=== PATIENT | female | born 1945 | race Caucasian/White ===

== ENCOUNTER 2018-12-19 16:22 | Emergency (ER) | payer MEDICARE ==
--- OUTSIDE RECORDS SUMMARY | 2018-12-19 16:58 | XMS REPORT | Continuity of Care Document ---
:1945 External Reference #:[id number] Author Name Buddy Roa MD Address [address] [place] [address] Care Team Providers Name Role Phone Jesus Sparks MD Care Team Information Software Integration Developer Unavailable Jesus Sparks MD Primary Care Physician Unavailable Payers Date Identification Numbers Payment Provider Subscriber Policy Number: [id number] Medicare Kari Franz PayID: [id number] [address] [place] [address] Expires: 2018 Policy Number: [id number] Medicare Kari Franz PayID: [id number] [address] [place] [address] Expires: 2013 Policy Number: [id number] Lifetime Benefit Kari Franz Solution PayID: [id number] [address] [address] [place] [address] Effective: 2013 Policy Number: [facility] Kari Franz [id number] PayID: [id number] [address] [place] [address] Advance Directives Description No Information Available Problems Active Problems Provider Date Abnormal results of cardiovascular Malka Lea ANP Onset: 08/18/2012 function studies Chest pain Malka Lea ANP Onset: 08/18/2012 Benign essential hypertension Malka Lea ANP Onset: 08/18/2012 Mixed hyperlipidemia Malka Lea ANP Onset: 08/18/2012 Dyspnea Malka Lea ANP Onset: 04/28/2013 Disorder of skin and/or subcutaneous Jose Alejandro Haley M.D. Onset: 07/05/2013 tissue Arthralgia of the ankle and/or foot Jose Alejandro Haley M.D. Onset: Atrial fibrillation Malka Lea, ANP Onset: 09/22/2014 Coronary arteriosclerosis Malka Lea ANP Onset: 09/22/2014 Angina pectoris Malka Lea, CONRADO Onset: 09/22/2014 Peripheral vascular disease Malka Lea ANP Onset: 09/22/2014 Essential hypertension Buddy Roa MD Onset: 05/08/2015 Trochanteric bursitis Beni Campa M.D. 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 Family History Date Family Member(s) Observation Comments Father due to Aneurysm () Father due to Heart Disease () Mother due to Congestive Heart Failure () Mother due to Diabetes () Mother due to Stroke () Grandfather due to Heart Disease () Grandmother due to Stroke () Social History Type Date Description Comments Sex Unknown Lives With Alone Diet Patient is on a low sugar diet Occupation Retired ADL's/IADL's Independent with all ADL's Tobacco Use Start: Unknown Never Smoked Cigarettes ETOH Use Rarely consumes alcohol Tobacco Use Start: Unknown Patient has never smoked Smoking Status Reviewed: 07/04/18 Patient has never smoked Allergies, Adverse Reactions, Alerts Active Allergies Reaction Severity Comments Date Penicillins 12/24/2011 Sulfa Drugs 12/24/2011 NSAIDs 12/24/2011 Aspirin causes brusing 12/24/2011 Allopurinol 12/24/2011 Flovent 12/24/2011 Zonegran 02/14/2014 Fluticasone Propionate 05/17/2015 NSAIDS (Non-Steroidal Anti-Inflamma 05/17/2015 Sulfa (Sulfonamide Antibiotics) 05/17/2015 Alcohol 05/17/2015 Cinnamon 05/17/2015 Zonisamide 05/17/2015 Doxycycline 06/30/2016 Nitrofurantoin Hives, Itching 11/28/2018 Medications Active Medications SIG Qnty Indications Ordering Date Provider Digoxin take 1 tablet by 90tabs Agustin Rodriguez 01/12/2018 125mcg Tablets mouth once daily Meg Hobbs, [facility] Preservision Areds 2 1 by mouth twice a Unknown day Areds 2 Capsules Lyrica 1 cap by mouth Unknown 50mg Capsules twice a day as needed Oxygen with Cpap Unknown Miralax 1 tablespoon with Unknown [id number] Powder large glass of water every day Krill Oil 1 by mouth every Unknown 350mg day Capsules Melatonin 1 tab by mouth Unknown 5mg Capsules every day at bedtime Benadryl Allergy 1 tab by mouth Unknown 25mg twice a day for Tablets rash Potassium Chloride 1 by mouth every 90tabs Agustin Rodriguez Mirna ER day Meg Hobbs, [facility] 10Meq Tablets ER Torsemide Take 1 Tablet By 90tabs Buddy Roa MD 20mg Tablets Mouth Twice Daily For 3 Days Then One Tablet Daily Proair HFA take 2 puffs every Unknown 108(90Base) 6 hours as needed mcg/Act Aerosol for shortness of breath. Aspirin Adult Low 1 by mouth every Unknown Dose day 81mg Tablets DR Amlodipine Besylate 1 by mouth every Unknown 5mg day Tablets Venlafaxine HCL ER 1 in the morning Unknown 75mg Tablets Gabapentin 1 by mouth in Am Unknown 300mg and 2-3 PM Capsules Pravastatin Sodium 1 1/2 by mouth Unknown 40mg every evening Tablets Novolog Flexpen as instructed Unknown 100Unit/ML Solution Pen-Inject Levemir 66 units am, 64 Unknown 100Unit/ML units PM Solution Pen-Inject Lisinopril 1/2 po qd 90tabs Unknown 40mg Tablets History Medications Torsemide take 1 tablet by 90tashanell Rodriguez 01/12/2018 - 20mg Tablets mouth twice daily Agustin Hobbs M.D., Unknown for 3 days then FACC one tablet daily Adult Diapers 3 months supply Buddy Roa MD 06/18/2017 - Unknown Aspirin Ec 1 by mouth every 90tabs I48.1 Buddy Roa MD 06/18/2017 - 81mg Tablets DR day Unknown Eliquis 1 tab by mouth 60tabs I48.1 Buddy Roa MD 03/03/2017 - 2.5mg Tablets twice daily 06/18/2017 Amiodarone HCL 1 by mouth every 90tabs Buddy Roa MD 11/12/2016 - 200mg Tablets day Unknown Bystolic 1 by mouth every 90tabs Buddy Roa MD 11/11/2016 - 5mg Tablets day Unknown Potassium Chloride ER 2 by mouth every 180tabs Jennifer, 11/11/2016 - 10Meq day Agustin Hobbs M.D., Unknown Tablets ER FACC Torsemide 1 by mouth daily 90tabs Buddy Roa MD 09/22/2016 - 20mg Tablets 01/12/2018 Digoxin 1 by mouth every 90tabs Buddy Roa MD 09/22/2016 - 125mcg Tablets day 11/22/2017 Amiodarone HCL 1 by mouth every 90tabs Jennifer, 07/13/2016 - 200mg Tablets day Agustin Hobbs M.D., 11/11/2016 FACC Eliquis 1 by mouth twice 60tabs I48.9 Buddy Roa MD 06/30/2016 - 5mg Tablets a day 1 11/11/2016 Lyrica 1 by mouth each 60caps Boufal, 11/07/2015 - 50mg Capsules morning Jane, Unknown Metolazone 1 tab by mouth 30tabs R60.0 Buddy Roa MD 05/08/2015 - 2.5mg Tablets take 30 min prior Unknown to in the morning torsemide dose Torsemide 1 by mouth twice Unknown 03/15/2015 - 20mg Tablets daily 03/15/2015 Magnesium Oxide 1 by mouth every 30tabs Buddy Roa MD 03/14/2015 - 400(240Mg) mg day 09/09/2015 Tablets Torsemide 2 by mouth twice 60tabs 782.3 Buddy Roa MD 02/28/2015 - 20mg Tablets daily Unknown Potassium Chloride Mirna 2 by mouth every 60tabs Buddy Roa MD 2014 - ER day Unknown 20Meq Tablets ER Amlodipine Besylate 1 by mouth every 90tabs I10 Buddy Roa MD 2014 - 5mg Tablets day 09/09/2015 Tramadol HCL 2 tablets at 40tabs Brad Johnson 04/23/2014 - 50mg Tablets bedtime as needed MD Tad, FACS Unknown for pain Imdur 1 po qd 90tabs 786.5 Barry Walden, 04/27/2013 - 30mg Tablets ER 24HR 0 , PhD Unknown Spironolactone Take One Tablet 30tabs 401.1 Barry Walden, 09/23/2012 - 25mg Tablets By Mouth Every , PhD 04/12/2014 Day Nitroglycerin Unknown - 0.1mg/HR Patches Unknown 24HR Nystatin apply to affected Unknown - [id number]/GM Cream areas twice a day Unknown Berkey 3 1 by mouth every Unknown - 1000mg Capsules day Unknown Xarelto 1 by mouth every Unknown - 20mg Tablets day Unknown Spironolactone 1 by mouth every Unknown - 25mg Tablets day Unknown Proair HFA 1-2 inhalations Unknown - 108(90Base) mcg/Act every 4 hours as 09/09/2015 Aerosol needed Acetaminophen-Codeine #3 1 by mouth every Unknown - 6 hours as needed 09/09/2015 300-30mg Tablets Torsemide 2 by mouth every 180tabs Jennifer - 20mg Tablets day Agustin Hobbs M.D., Unknown FACC Torsemide 1 by mouth twice 60tabs Buddy Roa MD - 20mg Tablets daily Unknown Lasix 1 by mouth every Unknown - 40mg Tablets day Unknown Aspir-81 1 by mouth every I48.9 Unknown - 81mg Tablets DR day 1 06/30/2016 Ditropan XL 1 by mouth every 30tabs Unknown - 5mg Tablets ER 24HR day Unknown Amitriptyline HCL at bedtime 30tabs Unknown - 75mg Tablets Unknown Patanol 1 drop both eyes Unknown - 0.1% Solution twice a day as Unknown needed Ventolin HFA as needed Unknown - 108(90Base) 01/12/2018 mcg/Act Aerosol Nitrostat 1 tab sl every 5 25tabs Unknown - 0.4mg Tablets Sub min x3 chest pain Unknown Furosemide 1 tab by mouth 90tabs Buddy Roa MD - 40mg Tablets twice daily 02/28/2015 Isosorbide Dinitrate 1 by mouth twice 180tabs R07.9 Buddy Roa MD - 30mg a day 11/07/2015 Tablets Vitamin B Complex 1 by mouth every Unknown - Tablets day Unknown Isosorbide Mononitrate ER 1 by mouth every Unknown - 30mg morning Unknown Tablets ER 24HR Fish Oil 1 by mouth daily Unknown - 600mg Capsules Unknown Isosorbide Dinitrate take one twice Unknown - 30mg daily 01/12/2018 Tablets Aspir-81 1 by mouth every Unknown - 81mg Tablets DR day Unknown Lyrica 2 by mouth in am Unknown - 50mg Capsules three po at hs Unknown Lyrica 1 tab by mouth Unknown - 150mg Capsules twice a day Unknown Amlodipine Besylate Take One Tablet 90tabs Buddy Roa MD - 5mg Tablets By Mouth Once Unknown Daily Oxybutynin Chloride ER 1 by mouth twice Unknown - 5mg daily 01/12/2018 Tablets ER 24HR Beta Carotene every day Unknown - [id number] Unknown Capsules Magnesium 1 by mouth every Unknown - 400mg Tablets day 11/07/2015 Lyrica Take 1 capsule by Unknown - 100mg Capsules mouth AT Bedtime Unknown for diabetes with nerve disease Multivitamins 1 by mouth every Unknown - Capsules day Unknown Melatonin 1 by mouth every Unknown - 5mg Capsules at bedtime as Unknown needed Klor-Con M20 2 by mouth every 180tabs Jennifer, - 20Meq Tablets ER day Agustin Hobbs M.D., Unknown FACC Tylenol With Codeine #3 1 by mouth q6hr Unknown - as needed severe Unknown 300-30mg Tablets pain, us if ibuprofen not effective Sominex Unknown - 25mg Tablets Unknown Fenofibrate 1 by mouth every Unknown - 48mg Tablets day Unknown Glyburide 2 po bid Unknown - 5mg Tablets Unknown Hydrochlorothiazide 1 po qd 401.1 Unknown - 25mg 09/23/2012 Tablets Lisinopril 1 po qd 90tabs Unknown - 40mg Tablets Unknown Acetaminophen/Codeine #2 1-3 Times A Day Unknown - prn 09/09/2015 300-15mg Tablets Pravastatin Sodium 1 po qd 30tabs Unknown - 40mg Tablets 09/09/2015 Amitriptyline HCL hs 30tabs Unknown - 75mg Tablets Unknown Metformin HCL 1 po tid Unknown - 850mg Tablets Unknown Januvia 1 po qd 30tabs Unknown - 100mg Tablets Unknown Tricor 1 po qd Unknown - 48mg Tablets Unknown Venlafaxine HCL 1 po qd Unknown - 75mg Tablets Unknown Proair HFA 2 puffs q4h prn Unknown - 108(90Base) mcg/ac 12/13/2013 Aerosol Lantus sliding scale Unknown - 100U,ML Solution 12/13/2013 Multiple Vitamins qd Unknown - Tablets 09/09/2015 Fish Oil po qd 90caps Unknown - 1000mg Capsules Unknown Aspir-81 1 po qd 60tabs Unknown - 81mg Tablets DR Unknown Benadryl Allergy Unknown - 25mg Capsules Unknown Calcium 500 + D PO qd Unknown - [id number] Unknown Tablets Vitamin B Complex 1 po qd Unknown - Tablets Unknown Aspirin 1 by mouth every Unknown - 325mg Tablets day Unknown Fenofibrate 1 po qd Unknown - 48mg Tablets Unknown Spironolactone 1 po qd 401.1 Unknown - 50mg Tablets Unknown Gabapentin 2 po Tid Unknown - 100mg Capsules Unknown Glucosamine 1 po qd Unknown - 1500mg Tablets Unknown Vision Formula/Lutein 1 po bid Unknown - Tablets Unknown Fish Oil 1 po qd Unknown - Capsules 09/09/2015 Melatonin 1 po qhs Unknown - 3mg Capsules 09/09/2015 Benadryl po bid Unknown - 25mg Capsules 09/09/2015 Carvedilol 1 po bid Unknown - 3.125mg Tablets 04/12/2014 Aspirin 1 po qd 90tabs Unknown - 81mg Tablets Unknown Effexor XR 1 po qd Unknown - 75mg Caps ER 24HR 09/09/2015 Humalog sliding scale Unknown - 100Unit/ML Solution 12/13/2013 Nystatin apply to affected 15gm Unknown - 342369Pieb/GM Cream area bid 12/13/2013 Gabapentin 1 po bid Unknown - 300mg Capsules 09/09/2015 Prochlorperazine Maleate po prn nausea Unknown - 10mg Unknown Tablets Amlodipine Besylate 1 po qd 90tabs 401.1 Unknown - 10mg 10/08/2014 Tablets Lyrica 2 po qam, 3 po Unknown - 25mg Capsules qpm 09/09/2015 Patanol 1 drop ou bid prn Unknown - 0.1% Solution 12/13/2013 Medications Administered in Office Medication SIG Qnty Indications Ordering Provider Date Methylprednisolone acetate Brad Johnson, 12/13/2013 (Depomedrol) 80mg injection , CONNIE Injection Immunizations Description No Information Available Vital Signs Date Vital Result Comment 11/28/2018 3:43pm BP Systolic Sitting Left Arm 130 mmHg BP Diastolic Sitting Left Arm 86 mmHg Heart Rate 95 /min Respiratory Rate 18 /min Height 69 inches 5'9" Weight 292.00 lb BMI (Body Mass Index) 43.1 kg/m2 BSA (Body Surface Area) 2.43 m2 Carson body weight in kilograms 66 kg O2 % BldC Oximetry 91 % Ora 07/21/2018 1:00pm BP Systolic Sitting Left Arm 138 mmHg BP Diastolic Sitting Left Arm 72 mmHg Heart Rate 80 /min Respiratory Rate 18 /min Height 69 inches 5'9" Weight 293.00 lb BMI (Body Mass Index) 43.3 kg/m2 BSA (Body Surface Area) 2.43 m2 Carson body weight in kilograms 66 kg O2 % BldC Oximetry 94 % 07/04/2018 10:44am BP Systolic Sitting Left Arm 116 mmHg BP Diastolic Sitting Left Arm 72 mmHg Heart Rate 68 /min Respiratory Rate 18 /min Height 69 inches 5'9" Weight 285.00 lb BMI (Body Mass Index) 42.1 kg/m2 BSA (Body Surface Area) 2.40 m2 Carson body weight in kilograms 66 kg O2 % BldC Oximetry 97 % 03/16/2018 12:05pm BP Systolic Sitting Left Arm 132 mmHg BP Diastolic Sitting Left Arm 84 mmHg Heart Rate 67 /min Respiratory Rate 20 /min Weight 288.00 lb O2 % BldC Oximetry 97 % room air 01/12/2018 1:19pm BP Systolic Sitting Right Arm 108 mmHg BP Diastolic Sitting Right Arm 68 mmHg Heart Rate 92 /min Respiratory Rate 20 /min Weight 288.00 lb O2 % BldC Oximetry 93 % Ra 06/18/2017 2:35pm BP Systolic Sitting Left Arm 134 mmHg BP Diastolic Sitting Left Arm 78 mmHg Heart Rate 92 /min Respiratory Rate 16 /min Height 68.5 inches 5'8.50" Weight 277.00 lb BMI (Body Mass Index) 41.5 kg/m2 BSA (Body Surface Area) 2.36 m2 Carson body weight in kilograms 65 kg 05/03/2017 11:35am BP Systolic Sitting Left Arm 150 mmHg BP Diastolic Sitting Left Arm 82 mmHg Heart Rate 82 /min Respiratory Rate 18 /min Height 68.5 inches 5'8.50" Weight 281.00 lb BMI (Body Mass Index) 42.1 kg/m2 BSA (Body Surface Area) 2.37 m2 Carson body weight in kilograms 65 kg 03/03/2017 3:11pm BP Systolic Sitting Right Arm 121 mmHg BP Diastolic Sitting Right Arm 74 mmHg Heart Rate 85 /min Respiratory Rate 18 /min Height 68.5 inches 5'8.50" Weight 283.00 lb BMI (Body Mass Index) 42.4 kg/m2 BSA (Body Surface Area) 2.38 m2 Carson body weight in kilograms 65 kg 11/11/2016 2:22pm BP Systolic Sitting Left Arm 219 mmHg BP Diastolic Sitting Left Arm 97 mmHg Heart Rate 79 /min Respiratory Rate 16 /min Height 68.5 inches 5'8.50" Weight 314.00 lb BMI (Body Mass Index) 47.0 kg/m2 BSA (Body Surface Area) 2.49 m2 09/22/2016 1:56pm BP Systolic Sitting Right Arm 130 mmHg BP Diastolic Sitting Right Arm 84 mmHg Heart Rate 90 /min Respiratory Rate 18 /min Height 68.5 inches 5'8.50" Weight 319.00 lb BMI (Body Mass Index) 47.8 kg/m2 BSA (Body Surface Area) 2.51 m2 06/30/2016 2:18pm BP Systolic Sitting Right Arm 99 mmHg BP Diastolic Sitting Right Arm 58 mmHg Heart Rate 103 /min Respiratory Rate 18 /min Height 68.5 inches 5'8.50" Weight 315.00 lb BMI (Body Mass Index) 47.2 kg/m2 BSA (Body Surface Area) 2.49 m2 12/25/2015 2:49pm BP Systolic Sitting Left Arm 132 mmHg BP Diastolic Sitting Left Arm 78 mmHg Heart Rate 72 /min Respiratory Rate 16 /min Height 68.5 inches 5'8.50" Weight 308.00 lb BMI (Body Mass Index) 46.1 kg/m2 BSA (Body Surface Area) 2.47 m2 12/05/2015 1:12pm BP Systolic Sitting Left Arm 110 mmHg BP Diastolic Sitting Left Arm 64 mmHg Heart Rate 70 /min Respiratory Rate 16 /min Height 68.5 inches 5'8.50" Weight 313.00 lb BMI (Body Mass Index) 46.9 kg/m2 BSA (Body Surface Area) 2.49 m2 11/07/2015 10:07am BP Systolic 133 mmHg BP Diastolic 76 mmHg Body Temperature 97.3 F Heart Rate 66 /min Respiratory Rate 24 /min Height 68.5 inches 5'8.50" Weight 312.00 lb BMI (Body Mass Index) 46.7 kg/m2 BSA (Body Surface Area) 2.48 m2 O2 % BldC Oximetry 96 % 09/27/2015 1:11pm BP Systolic Sitting Right Arm 118 mmHg BP Diastolic Sitting Right Arm 60 mmHg Heart Rate 68 /min Respiratory Rate 16 /min Height 68.0 inches 5'8" Weight 303.00 lb BMI (Body Mass Index) 46.1 kg/m2 BSA (Body Surface Area) 2.44 m2 09/09/2015 2:42pm BP Systolic 124 mmHg BP Diastolic 82 mmHg Heart Rate 78 /min Height 68.0 inches 5'8" Weight 302.00 lb BMI (Body Mass Index) 45.9 kg/m2 BSA (Body Surface Area) 2.43 m2 08/13/2015 2:41pm BP Systolic Sitting Left Arm 116 mmHg BP Diastolic Sitting Left Arm 60 mmHg Heart Rate 64 /min Respiratory Rate 16 /min Height 68 inches 5'8" Weight 311.00 lb BMI (Body Mass Index) 47.3 kg/m2 BSA (Body Surface Area) 2.47 m2 06/26/2015 2:17pm BP Systolic Sitting Right Arm 114 mmHg BP Diastolic Sitting Right Arm 60 mmHg Heart Rate 68 /min Respiratory Rate 16 /min Height 68 inches 5'8" Weight 308.00 lb BMI (Body Mass Index) 46.8 kg/m2 BSA (Body Surface Area) 2.46 m2 06/12/2015 2:00pm BP Systolic Sitting Right Arm 128 mmHg BP Diastolic Sitting Right Arm 60 mmHg Heart Rate 68 /min Respiratory Rate 16 /min Height 68 inches 5'8" Weight 314.00 lb BMI (Body Mass Index) 47.7 kg/m2 BSA (Body Surface Area) 2.48 m2 05/08/2015 2:42pm BP Systolic Sitting Right Arm 128 mmHg BP Diastolic Sitting Right Arm 68 mmHg Heart Rate 60 /min Respiratory Rate 16 /min Height 68 inches 5'8" Weight 311.00 lb BMI (Body Mass Index) 47.3 kg/m2 BSA (Body Surface Area) 2.47 m2 04/03/2015 1:37pm BP Systolic Sitting Left Arm 136 mmHg BP Diastolic Sitting Left Arm 78 mmHg Heart Rate 54 /min Respiratory Rate 16 /min Height 68 inches 5'8" Weight 312.00 lb BMI (Body Mass Index) 47.4 kg/m2 BSA (Body Surface Area) 2.47 m2 03/15/2015 2:05pm BP Systolic Sitting Left Arm 128 mmHg BP Diastolic Sitting Left Arm 72 mmHg Heart Rate 60 /min Respiratory Rate 16 /min Height 68 inches 5'8" Weight 306.00 lb BMI (Body Mass Index) 46.5 kg/m2 BSA (Body Surface Area) 2.45 m2 02/28/2015 2:38pm BP Systolic Sitting Left Arm 110 mmHg BP Diastolic Sitting Left Arm 58 mmHg Heart Rate 60 /min Respiratory Rate 16 /min Height 68 inches 5'8" Weight 312.81 lb BMI (Body Mass Index) 47.6 kg/m2 BSA (Body Surface Area) 2.47 m2 02/19/2015 2:13pm BP Systolic Sitting Right Arm 120 mmHg BP Diastolic Sitting Right Arm 64 mmHg Heart Rate 50 /min Respiratory Rate 16 /min Height 68 inches 5'8" Weight 312.00 lb BMI (Body Mass Index) 47.4 kg/m2 BSA (Body Surface Area) 2.47 m2 12/17/2014 1:11pm Heart Rate 68 /min Respiratory Rate 16 /min Height 68 inches 5'8" Weight 312.00 lb BMI (Body Mass Index) 47.4 kg/m2 BSA (Body Surface Area) 2.47 m2 10/08/2014 11:23am Heart Rate 64 /min Respiratory Rate 16 /min Height 68 inches 5'8" Weight 313.00 lb BMI (Body Mass Index) 47.6 kg/m2 BSA (Body Surface Area) 2.47 m2 09/21/2014 11:08am BP Systolic Sitting Right Arm 134 mmHg BP Diastolic Sitting Right Arm 74 mmHg Heart Rate 94 /min Respiratory Rate 24 /min Height 68 inches 5'8" Weight 311.00 lb BMI (Body Mass Index) 47.3 kg/m2 BSA (Body Surface Area) 2.47 m2 04/25/2014 3:49pm BP Systolic Sitting Left Arm 120 mmHg BP Diastolic Sitting Left Arm 62 mmHg Heart Rate 52 /min Respiratory Rate 16 /min Height 68 inches 5'8" Weight 309.00 lb BMI (Body Mass Index) 47.0 kg/m2 BSA (Body Surface Area) 2.46 m2 04/12/2014 9:40am BP Systolic Sitting Left Arm 94 mmHg BP Diastolic Sitting Left Arm 40 mmHg Heart Rate 54 /min Respiratory Rate 20 /min Height 68 inches 5'8" Weight 307.00 lb BMI (Body Mass Index) 46.7 kg/m2 BSA (Body Surface Area) 2.45 m2 O2 % BldC Oximetry 97 % 02/13/2014 11:32am BP Systolic Sitting Right Arm 130 mmHg BP Diastolic Sitting Right Arm 84 mmHg Heart Rate 59 /min Respiratory Rate 16 /min Height 68 inches 5'8" Weight 300.00 lb BMI (Body Mass Index) 45.6 kg/m2 BSA (Body Surface Area) 2.43 m2 12/13/2013 2:36pm BP Systolic Sitting Right Arm 132 mmHg BP Diastolic Sitting Right Arm 84 mmHg Height 68 inches 5'8" Weight 296.00 lb BMI (Body Mass Index) 45.0 kg/m2 BSA (Body Surface Area) 2.41 m2 09/01/2013 2:14pm BP Systolic Sitting Right Arm 132 mmHg BP Diastolic Sitting Right Arm 68 mmHg Heart Rate 56 /min Respiratory Rate 16 /min Height 69 inches 5'9" Weight 291.00 lb BMI (Body Mass Index) 43.0 kg/m2 BSA (Body Surface Area) 2.42 m2 07/05/2013 12:00pm BP Systolic Sitting Left Arm 139 mmHg BP Diastolic Sitting Left Arm 66 mmHg Heart Rate 51 /min Height 69 inches 5'9" Weight 285.00 lb BMI (Body Mass Index) 42.1 kg/m2 BSA (Body Surface Area) 2.40 m2 06/15/2013 10:44am BP Systolic Sitting Left Arm 122 mmHg BP Diastolic Sitting Left Arm 64 mmHg Heart Rate 65 /min Respiratory Rate 16 /min Height 69 inches 5'9" Weight 290.00 lb BMI (Body Mass Index) 42.8 kg/m2 BSA (Body Surface Area) 2.42 m2 O2 % BldC Oximetry 95 % 04/27/2013 2:15pm BP Systolic Sitting Right Arm 154 mmHg BP Diastolic Sitting Right Arm 84 mmHg Heart Rate 60 /min Respiratory Rate 16 /min Height 69 inches 5'9" Weight 289.00 lb BMI (Body Mass Index) 42.7 kg/m2 BSA (Body Surface Area) 2.42 m2 10/20/2012 11:13am BP Systolic Sitting Left Arm 160 mmHg BP Diastolic Sitting Left Arm 86 mmHg Heart Rate 68 /min Respiratory Rate 20 /min Height 69 inches 5'9" Weight 298.00 lb BMI (Body Mass Index) 44.0 kg/m2 BSA (Body Surface Area) 2.45 m2 09/23/2012 2:25pm BP Systolic Sitting Left Arm 112 mmHg BP Diastolic Sitting Left Arm 60 mmHg Heart Rate 68 /min Respiratory Rate 22 /min w/ minimal exertion Height 69 inches Weight 292.00 lb BMI (Body Mass Index) 43.1 kg/m2 08/18/2012 9:23am BP Systolic Sitting Right Arm 118 mmHg Forearm BP Diastolic Sitting Right Arm 62 mmHg Forearm Heart Rate 72 /min Respiratory Rate 16 /min Height 69 inches 5'9" Stated- Can Not Stand Weight 298.00 lb Stated- Can Not Stand BMI (Body Mass Index) 44.0 kg/m2 Results Test Date Facility Test Result H/L Range Note Basic (BMP) 11/16/2018 N2N/CCD Import Sodium 139 mmol/L 135-146 1, 2 Potassium 3.9 mmol/L 3.5-5.2 Chloride# 103 mmol/L 97-110 3 Carbon Dioxide 23 mmol/L Low 24-34 Glucose 285 mg/dL High 70-105 BUN 30 mg/dL High 6-26 Creatinine 1.1 mg/dL 0.5-1.4 Calcium 9.8 mg/dL 8.5-10.2 Non Yue Egfr 47 1 Low 4 Yue Egfr 57 1 Low 5 Anion Gap 13 mmol/L 5-15 6 CBC with Auto Diff-fcmg 11/16/2018 N2N/CCD Import WBC 6.8 K/uL 4.1-11 RBC 4.43 M/uL 4-5.4 Hemoglobin 14.0 gm/dL 12-16 Hematocrit 41.8 % 36-47 MCV 94.4 fL 80-97 MCH 31.6 pg 27-32 MCHC 33.5 g/dL 32-36 RDW 14.2 % 11.5-14.5 PLT Count 183 K/ul 140-400 MPV 9.0 FL 7.1-10.7 Neutrophil 66.7 % 35-75 Lymphocyte 20.0 % 16-52 Monocyte 10.8 % High 2-10 Eosinophil 1.9 % 0-5 Basophil 0.6 % 0-4 Abs Neutrophils 4.5 K/uL 2.1-8 Abs Lymphocytes 1.4 K/uL 0.8-5.5 Abs Monocytes 0.7 K/uL 0.1-1 Abs Eosinophils 0.1 K/uL 0-0.5 Abs Basophils 0.0 K/uL 0-0.3 Lab Results 11/16/2018 N2N/CCD Import Hemoglobin A1c 10.6 % High 4.1-5.9 Estimated Average Glucose Calc 258 mg/dL High 71-140 TSH 3.79 uIU/mL 0.35-4.94 Lab Results 11/16/2018 N2N/CCD Import TSH 3.79 uIU/mL 0.35-4.94 Hepatic Panel (LFT) 11/16/2018 N2N/CCD Import Total Protein 6.2 g/dL 6- 8 Albumin 3.7 g/dL 3.6-4.9 Total Bilirubin 0.7 mg/dL 0.1-1.3 Direct Bilirubin 0.1 mg/dL 0-0.4 Alkaline Phosphatase 171 U/L High 24-140 Alt 28 U/L 3-42 Ast 33 U/L 8-42 Lab Results 11/16/2018 N2N/CCD Import Cholesterol 188 mg/dL 50-199 Triglycerides 314 mg/dL High 30-200 HDL 40 mg/dL 35-85 7 Chol/ HDL Ratio 4.7 ratio 3.7-5.6 VLDL 63 mg/dL High 2-29 LDL (Calc) 86 mg/dL 20-99 8 Ferritin 173.8 ng/mL 11-306.8 Lab Results 11/16/2018 N2N/CCD Import Ferritin 173.8 ng/mL 11-306.8 Hepatic Panel (LFT) 05/17/2018 N2N/CCD Import Albumin 3.8 g/dL 3.6-4.9 9 Alkaline Phosphatase 130 U/L 24-140 Alt 20 U/L 3-42 Ast 24 U/L 8-42 Direct Bilirubin 0.1 mg/dL 0-0.4 Total Bilirubin 0.7 mg/dL 0.1-1.3 Total Protein 6.3 g/dL 6-8 Laboratory test 05/17/2018 N2N/CCD Import Chol/ HDL Ratio 4.1 ratio 3.7- 5.6 finding Cholesterol 163 mg/dL 50-199 Estimated Average Glucose Calc 229 mg/dL High 71-140 Ferritin 170.6 ng/mL 11-306.8 HDL 39 mg/dL 35-85 10 Hemoglobin A1c 9.6 % High 4.1-5.9 LDL (Calc) 81 mg/dL 20-99 11 Triglycerides 214 mg/dL High 30-200 VLDL 43 mg/dL High 2-29 Basic (BMP) 05/17/2018 N2N/CCD Import Yue Egfr >60 12 Anion Gap 11 mmol/L 5-15 13 BUN 15 mg/dL 6-26 Calcium 9.2 mg/dL 8.5-10.2 Carbon Dioxide 26 mmol/L 24-34 Chloride# 103 mmol/L 97-110 14 Creatinine 0.8 mg/dL 0.5-1.4 Glucose 217 mg/dL High 70-105 Non Yue Egfr >60 15 Potassium 4.0 mmol/L 3.5-5.2 Sodium 140 mmol/L 135-146 16 CBC with Auto Diff-fcmg 05/17/2018 N2N/CCD Import Abs Basophils 0.0 K/uL 0-0.3 Abs Eosinophils 0.1 K/uL 0-0.5 Abs Lymphocytes 1.1 K/uL 0.8-5.5 Abs Monocytes 0.5 K/uL 0.1-1 Abs Neutrophils 4.1 K/uL 2.1-8 Basophil 0.6 % 0-4 Eosinophil 1.0 % 0-5 Hematocrit 40.0 % 36-47 Hemoglobin 13.6 gm/dL 12-16 Lymphocyte 19.2 % 16-52 MCH 31.9 pg 27-32 MCHC 33.9 g/dL 32-36 MCV 94.0 fL 80-97 MPV 8.3 FL 7.1-10.7 Monocyte 8.9 % 2-10 Neutrophil 70.3 % 35-75 PLT Count 217 K/ul 140-400 RBC 4.25 M/uL 4-5.4 RDW 14.5 % 11.5-14.5 WBC 5.8 K/uL 4.1-11 Laboratory test finding 06/14/2017 N2N/CCD Import Alt 13 U/L 3-42 17 Ast 19 U/L 8-42 18 Chol/ HDL Ratio 5.3 ratio 3.7-5.6 19 Cholesterol 209 mg/dL High 50-199 HDL 39 mg/dL 35-85 LDL (Calc) 105 mg/dL High 20-99 Magnesium 1.9 mg/dL 1.5-2.7 Triglycerides 323 mg/dL High 30-200 VLDL 65 mg/dL High 2-29 Basic (BMP) 06/14/2017 N2N/CCD Import Yue Egfr 60 1 Low >60 Anion Gap 8 mmol/L 7-16 BUN 20 mg/dL 6-26 20 Calcium 9.7 mg/dL 8.5-10.2 Carbon Dioxide 31 mmol/L 24-34 Chloride# 104 mmol/L 97-110 Creatinine 1.1 mg/dL 0.5-1.4 Glucose 89 mg/dL 70-105 21 Non Yue Egfr 50 1 Low >60 Potassium 4.1 mmol/L 3.5-5.2 22 Sodium 143 mmol/L 135-146 CBC With Auto Diff 06/14/2017 N2N/CCD Import Abs Basophils 0.1 K/uL 0.0- 0.3 Abs Eosinophils 0.1 K/uL 0.0-0.5 Abs Lymphocytes 1.8 K/uL 0.8-5.5 Abs Monocytes 0.7 K/uL 0.1-1.0 Abs Neutrophils 4.1 K/uL 2.1-8.0 Basophil 1.0 % 0.0-4.0 Eosinophil 1.1 % 0.0-5.0 Hematocrit 40.9 % 36.0-47.0 Hemoglobin 13.8 gm/dL 12.0-16.0 Lymphocyte 26.2 % 16.0-52.0 MCH 31.2 pg 27.0-32.0 MCHC 33.7 g/dL 32.0-36.0 MCV 92.6 fL 80.0-97.0 MPV 8.4 FL 7.1-10.7 Monocyte 10.9 % High 2.0-10.0 Neutrophil 60.8 % 35.0-75.0 PLT Count 218 K/ul 140-400 RBC 4.42 M/uL 4.00-5.40 RDW 14.9 % High 11.5-14.5 WBC 6.7 K/uL 4.1-11.0 Hemoglobin A1c 06/14/2017 N2N/CCD Import Estimated Average 220 1 High 71- 140 Glucose Calc Hemoglobin A1c 9.3 % High 4.1-5.9 Poct Glucose Meter 04/24/2017 N2N/CCD Import Glucose,Meter 266 mg/dL High 65 - 100 Basic Metabolic 04/24/2017 N2N/CCD Import Anion Gap 5 mEq/L 4 - 16 Panel BUN 14 mg/dL 8 - 20 BUN/Creat 12.7 1 12.0 - 20.0 Calcium 8.6 mg/dL 8.5 - 10.4 Chloride 109 mEq/L High 98 - 108 Co2 28 mEq/L 20 - 31 Creatinine 1.1 mg/dL High 0.5 - 0.9 Glucose 218 mg/dL High 65 - 100 Potassium 4.5 mEq/L 3.5 - 5.1 Sodium 142 mEq/L 135 - 145 CBC 04/24/2017 N2N/CCD Import HCT 35 % 35 - 47 HGB 11.6 g/dL Low 12.0 - 16.0 MCH 30.8 pg 26.0 - 34.0 MCHC 33.3 g/dL 31.0 - 37.5 MCV 92 fL 80 - 100 Platelet Count 149 103/uL Low 150 - 450 RBC 3.77 106/uL Low 3.80 - 5.20 RDW 13.8 % 0.0 - 15.2 WBC 5.6 103/uL 4.0 - 11.0 eGFR Black 04/24/2017 N2N/CCD Import Egfr Black 59 mL/min Abnormal eGFR 04/24/2017 N2N/CCD Import Egfr 49 mL/min Abnormal Poct Activated 04/23/2017 N2N/CCD Import Poct Act 229 seconds 200 - Clotting Time Cardiac Cath 300 Lab PT/Inr 04/23/2017 N2N/CCD Import Inr 1 0.9 - 1.2 Protime 10.8 sec 10.2 - 12.9 Laboratory test finding 02/10/2017 N2N/CCD Import Alt 14 U/L 3-42 23 Ast 15 U/L 8-42 24 Chol/ HDL Ratio 5.0 ratio 3.7-5.6 25 Cholesterol 181 mg/dL 50-199 Ferritin 87.6 ng/mL 11.0-306.0 HDL 36 mg/dL 35-85 LDL (Calc) 94 mg/dL 20-99 TSH 1.11 uIU/mL 0.35-4.94 Triglycerides 254 mg/dL High 30-200 VLDL 51 mg/dL High 2-29 Basic (BMP) 02/10/2017 N2N/CCD Import Anion Gap 14 mmol/L 7-16 BUN 17 mg/dL 6-26 Calcium 9.2 mg/dL 8.5-10.2 Carbon Dioxide 26 mmol/L 24-34 Chloride# 104 mmol/L 97-110 Creatinine 1.1 mg/dL 0.5-1.4 Glucose 67 mg/dL Low 70-105 26 Non Yue Egfr 51 1 Low >60 Potassium 3.6 mmol/L 3.5-5.2 27 Sodium 140 mmol/L 135-146 CBC With Auto Diff 02/10/2017 N2N/CCD Import Abs Basophils 0.0 K/uL 0.0- 0.3 Abs Eosinophils 0.1 K/uL 0.0-0.5 Abs Lymphocytes 2.1 K/uL 0.8-5.5 Abs Monocytes 0.6 K/uL 0.1-1.0 Abs Neutrophils 4.0 K/uL 2.1-8.0 Basophil 0.4 % 0.0-4.0 Eosinophil 1.6 % 0.0-5.0 Hematocrit 41.7 % 36.0-47.0 Hemoglobin 13.9 gm/dL 12.0-16.0 Lymphocyte 30.3 % 16.0-52.0 MCH 31.5 pg 27.0-32.0 MCHC 33.4 g/dL 32.0-36.0 MCV 94.2 fL 80.0-97.0 Monocyte 8.6 % 2.0-10.0 Neutrophil 59.1 % 35.0-75.0 PLT Count 194 K/ul 140-400 RBC 4.43 M/uL 4.00-5.40 RDW 13.4 % 11.5-14.5 WBC 6.8 K/uL 4.1-11.0 Hemoglobin A1c 02/10/2017 N2N/CCD Import Estimated Average 235 1 High 71- 140 Glucose Calc Hemoglobin A1c 9.8 % High 4.1-5.9 Iron Panel 02/10/2017 N2N/CCD Import % Iron Saturation 11.7 % Low 13.0- 45.0 Iron, Total 48 g/dL Low 50-170 Tibc (calc) 410 g/dL 261-478 Transferrin 293.0 mg/dL 203.0-362.0 CBC 11/20/2016 [facility] White Blood Count 4.3 K/uL N 3.1-10.7 28 [address] [place], [place] [id number] [phone] Red Blood Count 4.33 M/uL N 3.90-5.40 Hemoglobin 13.8 gm/dL N 11.6-15.8 Hematocrit 41.4 % N 36.0-46.1 Mean Cell Volume 95.6 fl N 80.9-99.0 Mean Corpuscular HGB 31.9 pg N 25.9-32.7 Mean Corpuscular HGB Conc 33.3 g/dL N 30.8-34.3 Platelet Count 174 K/uL N 150-400 Red Cell Distri Width %CV 13.9 % N 11.7-14.4 Mean Platelet Volume 10.3 fL N 8.9-12.4 Basic Metabolic Panel 11/20/2016 [facility] Glucose 196 mg/dL High 74-106 [address] [place], [place] [id number] [phone] BUN 26 mg/dL High 7-18 Creatinine 1.4 mg/dL High 0.6-1.3 Glom Filtration Rate, Estimate 39 mL/min >60 If 48 mL/min >60 29 BUN/Creat 18.5 ratio Sodium 142 mmol/L N 136-145 Potassium 3.7 mmol/L N 3.5-5.1 Chloride 103 mmol/L N 98-107 Carbon Dioxide 32 mmol/L N 21-32 Anion Gap 7 mEq/L Low 8-16 Calcium 8.8 mg/dL N 8.5-10.1 Laboratory test 11/19/2016 [facility] Potassium 3.6 mmol/L N 3.5-5.1 finding [address] [place], [place] [id number] [phone] CBC 11/19/2016 [facility] White Blood 5.0 K/uL N 3.1-10.7 [address] [facility] [place] [address] [phone] Red Blood Count 4.22 M/uL N 3.90-5.40 Hemoglobin 13.6 gm/dL N 11.6-15.8 Hematocrit 40.3 % N 36.0-46.1 Mean Cell Volume 95.5 fl N 80.9-99.0 Mean Corpuscular HGB 32.2 pg N 25.9-32.7 Mean Corpuscular HGB Conc 33.7 g/dL N 30.8-34.3 Platelet Count 174 K/uL N 150-400 Red Cell Distri Width %CV 13.8 % N 11.7-14.4 Mean Platelet Volume 10.5 fL N 8.9-12.4 Basic Metabolic Panel 11/19/2016 [facility] Glucose 118 mg/dL High 74-106 [address] [place], [place] [id number] [phone] BUN 27 mg/dL High 7-18 Creatinine 1.4 mg/dL High 0.6-1.3 Glom Filtration Rate, Estimate 39 mL/min >60 If 48 mL/min >60 30 BUN/Creat 19.2 ratio Sodium 141 mmol/L N 136-145 Potassium 3.1 mmol/L Low 3.5-5.1 Chloride 100 mmol/L N 98-107 Carbon Dioxide 31 mmol/L N 21-32 Anion Gap 10 mEq/L N 8-16 Calcium 8.7 mg/dL N 8.5-10.1 [id number] 11/18/2016 [facility] Nitrofurantoin [address] [place], [place] [id number] [phone] Trimethoprim/Sulfamethoxazole <=20 S Ampicillin 16 R Cefazolin <=4 S Ampicillin/Sulbactam 4 S Ciprofloxacin <=0.25 S Piperacillin/Tazobactam <=4 S Ceftazidime <=1 S Ceftriaxone <=1 S Cefepime <=1 S Levofloxacin <=0.12 S Imipenem <=0.25 S Gentamicin <=1 S Tobramycin <=1 S CBC 11/18/2016 [facility] White Blood Count 5.6 K/uL N 3.1-10.7 [address] [place] [address] [phone] Red Blood Count 4.39 M/uL N 3.90-5.40 Hemoglobin 14.1 gm/dL N 11.6-15.8 Hematocrit 41.4 % N 36.0-46.1 Mean Cell Volume 94.3 fl N 80.9-99.0 Mean Corpuscular HGB 32.1 pg N 25.9-32.7 Mean Corpuscular HGB Conc 34.1 g/dL N 30.8-34.3 Platelet Count 175 K/uL N 150-400 Red Cell Distri Width %CV 13.7 % N 11.7-14.4 Mean Platelet Volume 10.2 fL N 8.9-12.4 Basic Metabolic Panel 11/18/2016 [facility] Glucose 349 mg/dL High 74-106 [address] [place], [place] [address] [phone] BUN 25 mg/dL High 7-18 Creatinine 1.6 mg/dL High 0.6-1.3 Glom Filtration Rate, Estimate 34 mL/min >60 If 41 mL/min >60 31 BUN/Creat 15.6 ratio Sodium 135 mmol/L Low 136-145 Potassium 3.5 mmol/L N 3.5-5.1 Chloride 96 mmol/L Low 98-107 Carbon Dioxide 30 mmol/L N 21-32 Anion Gap 9 mEq/L N 8-16 Calcium 9.3 mg/dL N 8.5-10.1 Glycohemoglobin 11/18/2016 [facility] Glycohemoglobin 10.7 % High 4.2-6.[address] (A1c) [place] [address] [phone] eAG 260 mg/dL Laboratory test 11/17/2016 [facility] Glucose 517 mg/dL High 74-106 [address] [place] [address] [phone] Laboratory test 11/17/2016 [facility] Glucose 557 mg/dL High 74-106 [address] [place] [address] [phone] Ua Routine 11/17/2016 [facility] Urine Color YELLOW Yellow [address] [place], [place] [address] [phone] Urine Clarity CLEAR Clear Urine Glucose - Dipstick >=1000 mg/dL High Negative Urine Bilirubin - Dipstick NEGATIVE Negative Urine Ketone NEGATIVE mg/dL Negative Urine Specific [place] <=1.005 Low 1.010-1.030 Urine Blood NEGATIVE Negative Urine PH 5.5 Low 6.5-7.5 Urine Protein - Dipstick NEGATIVE mg/dL Negative Urine Urobilinogen - Dipstick 0.2 E.U./dL N 0.2-1.0 Urine Nitrite - Dipstick POSITIVE Abnormal Negative Urine Leuk Esterase NEGATIVE Negative Urine RBC NONE SEEN rbc/hpf 0-2 Urine WBC 2-5 wbc/hpf 0-7 Urine Epithelial Cells FEW /lpf None Seen Urine Bacteria MODERATE Abnormal None Seen Urine Yeast FEW None Seen Source: URINE, CLEAN CAT <SEE NOTE> 35 Culture If 11/17/2016 [facility] Culture If CULTURE TO 36 Indicated Comment [address] Indicated Comment FOLLO <[place] [address] NOTE> [phone] Source: URINE, CLEAN CAT <SEE NOTE> 37 Urine Culture 11/17/2016 [facility] Urine Culture KLEBSIELLA Abnormal [address] PNEUM <[place] [address] NOTE> [phone] Quantity > 100,000 CFU/mL N 39 Urine Culture MIXED URETHRAL F <SEE NOTE> 40 Quantity 50,000 - 100,000 <SEE NOTE> N 41 Blood Culture 11/16/2016 [facility] Blood Culture NO GROWTH: FINAL [address] Aerobic <SEE NOTE> [place] [address] [phone] Blood Culture Anaerobic NO GROWTH: FINAL <SEE NOTE> 43 Blood Culture 11/16/2016 [facility] Blood Culture NO GROWTH: FINAL [address] Aerobic <SEE NOTE> [place], [place] [id number] [phone] Blood Culture Anaerobic NO GROWTH: FINAL <SEE NOTE> 45 Basic Metabolic Panel 11/11/2016 [facility] Glucose 189 mg/dL High 74-106 46 [address] [place], [place] [address] [phone] BUN 18 mg/dL N 7-18 Creatinine 1.3 mg/dL N 0.6-1.3 Glom Filtration Rate, Estimate 43 mL/min >60 If 52 mL/min >60 47 BUN/Creat 13.8 ratio Sodium 140 mmol/L N 136-145 Potassium 3.9 mmol/L N 3.5-5.1 Chloride 106 mmol/L N 98-107 Carbon Dioxide 24 mmol/L N 21-32 Anion Gap 10 mEq/L N 8-16 Calcium 9.2 mg/dL N 8.5-10.1 Reflex add FT3? Y Reflex add FT4? Y TSH Reflex FT4 11/11/2016 [facility] Thyroid Stim 2.08 uIU/mL N 0.30-4.20 And/Or FT3 [address] [facility] Hormone [place], [place] [id number] [phone] Reflex add FT3? Y Reflex add FT4? Y TSH Reflex FT4 09/22/2016 [facility] Thyroid Stim 2.86 uIU/mL N 0.30-4.20 48 And/Or FT3 [address] [place], [place] [address] [phone] Reflex add FT3? Y Reflex add FT4? Y Magnesium 09/22/2016 [facility] Magnesium 1.7 mg/dL Low 1.8-2.4 [address] [place], [place] [id number] [phone] Reflex add FT3? Y Reflex add FT4? Y LDL Cholesterol 09/22/2016 [facility] Cholesterol 202 mg/dL High <200 49 Profile [address] [place], [place] [address] [phone] Triglycerides 392 mg/dL High <150 50 HDL Cholesterol 41 mg/dL >40 51 LDL-Cholesterol 83 mg/dL < 100 52 Reflex add FT3? Y Reflex add FT4? Y CBS W/Automated Diff 09/22/2016 [facility] White Blood 4.4 K/uL N 3.1-10.[address] [place] [address] [phone] Red Blood Count 4.22 M/uL N 3.90-5.40 Hemoglobin 13.8 gm/dL N 11.6-15.8 Hematocrit 40.8 % N 36.0-46.1 Mean Cell Volume 96.7 fl N 80.9-99.0 Mean Corpuscular HGB 32.7 pg N 25.9-32.7 Mean Corpuscular HGB Conc 33.8 g/dL N 30.8-34.3 Platelet Count 168 K/uL N 150-400 Red Cell Distri Width SD 47.1 fl High 3-47 Red Cell Distri Width %CV 13.7 % N 11.7-14.4 Mean Platelet Volume 9.9 fL N 8.9-12.4 Neut% 64.1 % N 40.4-72.8 Lymph % 25.4 % N 20.0-42.0 [place] % 9.1 % N 4.3-13.2 Eo% 0.9 % N 0.0-6.6 Bas% 0.5 % N 0.0-1.1 Neut# 2.83 K/uL N 1.8-7.0 Lymph # 1.12 K/uL N 1.0-4.0 [place] # 0.40 K/uL N 0.3-0.9 Eos # 0.04 K/uL N 0.0-0.5 Baso # 0.02 K/uL N 0.0-0.1 Comprehensive Metabolic 09/22/2016 [facility] Glucose 297 mg/dL High 74-[address] [place], [place] [id number] [phone] BUN 20 mg/dL High 7-18 Creatinine 1.4 mg/dL High 0.6-1.3 Glom Filtration Rate, Estimate 39 mL/min >60 If 48 mL/min >60 53 BUN/Creat 14.2 ratio Sodium 138 mmol/L N 136-145 Potassium 4.0 mmol/L N 3.5-5.1 Chloride 103 mmol/L N 98-107 Carbon Dioxide 26 mmol/L N 21-32 Anion Gap 9 mEq/L N 8-16 Calcium 8.8 mg/dL N 8.5-10.1 Total Protein 6.6 g/dL N 6.4-8.2 Albumin 3.2 g/dL Low 3.4-5.0 Globulin 3.4 g/dL N 1.9-4.3 Alb/Glob 0.9 ratio Bilirubin,Total 0.4 mg/dL N 0.2-1.0 Sgot/Ast 14 U/L Low 15-37 54 SGPT/Alt 21 U/L N 12-78 Alkaline Phosphatase 125 U/L High 45-117 Reflex add FT3? Y Reflex add FT4? Y Basic Metabolic Panel 12/24/2015 [facility] Glucose 251 mg/dL High 74-106 [address] [place] [address] [phone] BUN 19 mg/dL High 7-18 Creatinine 1.1 mg/dL 0.6-1.3 Glom Filtration Rate, Estimate 52 mL/min >60 If >60 mL/min >60 55 BUN/Creat 17.2 ratio Sodium 137 mmol/L 136-145 Potassium 4.0 mmol/L 3.5-5.1 Chloride 100 mmol/L 98-107 Carbon Dioxide 29 mmol/L 21-32 Anion Gap 8 mEq/L 8-16 Calcium 9.6 mg/dL 8.5-10.1 Laboratory test 12/24/2015 [facility] Magnesium 1.6 mg/dL Low 1.8-2.4 finding [address] [place] [address] [phone] CBC W/Automated 11/15/2015 [facility] White Blood 5.3 K/uL 3.1-10.7 Diff [address] [facility] [place] [address] [phone] Red Blood Count 4.31 M/uL 3.90-5.40 Hemoglobin 13.3 gm/dL 11.6-15.8 Hematocrit 40.4 % 36.0-46.1 Mean Cell Volume 93.7 fl 80.9-99.0 Mean Corpuscular HGB 30.9 pg 25.9-32.7 Mean Corpuscular HGB Conc 32.9 g/dL 30.8-34.3 Platelet Count 195 K/uL 155-360 Red Cell Distri Width SD 50.1 fl High 3-47 Red Cell Distri Width %CV 15.0 % High 11.7-14.4 Mean Platelet Volume 9.9 fL 8.9-12.4 Neut% 64.4 % 40.4-72.8 Lymph % 21.5 % 17.0-46.1 [place] % 11.8 % 4.3-13.2 Eo% 1.9 % 0.0-6.6 Bas% 0.4 % 0.0-1.1 Neut# 3.38 K/uL 1.8-7.0 Lymph # 1.13 K/uL Low 1.8-7.0 [place] # 0.62 K/uL 0.3-0.9 Eos # 0.10 K/uL 0.0-0.5 Baso # 0.02 K/uL 0.0-0.1 Comprehensive Metabolic 11/15/2015 [facility] Glucose 110 mg/dL High 74-106 Panel [address] [place] [address] [phone] BUN 25 mg/dL High 7-18 Creatinine 1.2 mg/dL 0.6-1.3 Glom Filtration Rate, Estimate 47 mL/min >60 If 57 mL/min >60 56 BUN/Creat 20.8 ratio Sodium 141 mmol/L 136-145 Potassium 4.1 mmol/L 3.5-5.1 Chloride 108 mmol/L High 98-107 Carbon Dioxide 27 mmol/L 21-32 Anion Gap 6 mEq/L Low 8-16 Calcium 9.0 mg/dL 8.5-10.1 Total Protein 6.8 g/dL 6.4-8.2 Albumin 3.2 g/dL Low 3.4-5.0 Globulin 3.6 g/dL 1.9-4.3 Alb/Glob 0.9 ratio Bilirubin,Total 0.4 mg/dL 0.2-1.0 Sgot/Ast 17 U/L 15-37 SGPT/Alt 26 U/L 12-78 Alkaline Phosphatase 137 U/L High 45-117 Laboratory test finding 11/15/2015 [facility] LDH 194 U/L 84-246 [address] [place] [address] [phone] Uric Acid 7.4 mg/dL High 2.6-6.0 Immunoglobulins 11/15/2015 [facility] Immunoglobulin [phone] A/G/M, QN, Ser [address] G,Quant,Serum mg/[place] [address] [phone] Immunoglobulin A 216 mg/dL 64-422 Immunoglobulin M 86 mg/dL 26-217 57 CBC With Auto Diff 10/11/2015 N2N/CCD Import Abmon 0.5 K/uL 0.1-1.0 58 Abs Basophils 0.0 K/uL 0.0-0.3 Abs Eosinophils 0.1 K/uL 0.0-0.5 Abs Lymphocytes 1.2 K/uL 0.8-5.5 Abs Neutrophils 3.7 K/uL 2.1-8.0 Basophil 0.8 % 0.0-4.0 Eosinophil 1.4 % 0.0-5.0 Hematocrit 40.8 % 36.0-47.0 Hemoglobin 13.2 gm/dL 12.0-16.0 Lymphocyte 21.4 % 16.0-52.0 MCH 30.1 pg 27.0-32.0 MCHC 32.4 g/dL 32.0-36.0 MCV 93.0 fL 80.0-97.0 Monocyte 9.3 % 2.0-10.0 Neutrophil 67.1 % 35.0-75.0 PLT Count 202 K/ul 140-400 RBC 4.39 M/uL 4.00-5.40 RDW 15.7 % High 11.5-14.5 WBC 5.5 K/uL 4.1-11.0 Basic (BMP) 10/11/2015 N2N/CCD Import Yue Egfr 46 Low >60 59 Anion Gap 13 mmol/L 6-14 BUN 29 mg/dL High 6-26 Calcium 9.7 mg/dL 8.5-10.2 Carbon Dioxide 25 mmol/L 24-34 Chloride 104 mmol/L 97-109 Creatinine 1.4 mg/dL 0.5-1.4 Glucose 61 mg/dL Low 70-105 Non Yue Egfr 38 Low >60 Potassium 4.4 mmol/L 3.5-5.2 Sodium 138 mmol/L 134-142 Laboratory test finding 10/11/2015 N2N/CCD Import Alt 17 U/L 3-42 Ast 16 U/L 8-42 60 Chol/ HDL Ratio 5.7 ratio High 3.7-5.6 61 Cholesterol 224 mg/dL High 50-199 HDL 39 mg/dL 35-85 Hemoglobin A1c 8.6 % High 4.1-5.9 LDL (Calc) 118 mg/dL High 20-99 Triglycerides 335 mg/dL High 30-200 VLDL 67 mg/dL High 2-29 Basic Metabolic Panel 08/30/2015 N2N/CCD Import Anion Gap 9 mEq/L 8-16 BUN 25 mg/dL High 7-18 BUN/Creat 19.2 ratio Calcium 8.9 mg/dL 8.5-10.1 Carbon Dioxide 27 mmol/L 21-32 Chloride 104 mmol/L 98-107 Creatinine 1.3 mg/dL 0.6-1.3 Glom Filtration Rate, Estimate 43 mL/min >60 Glucose 163 mg/dL High 74-106 62 If 52 mL/min >60 Potassium 4.1 mmol/L 3.5-5.1 Sodium 140 mmol/L 136-145 Laboratory test 08/28/2015 N2N/CCD Import C-Reactive Protein, 17.2 High < 3.0 finding Quantitative Inr International Normalized Ratio 0.9 0.9-1.1 Prothrombin Time 12.8 12.1-14.9 Basic Metabolic Panel 08/13/2015 [facility] Glucose 101 mg/dL 74-106 [address] [place] [address] [phone] BUN 31 mg/dL High 7-18 Creatinine 1.1 mg/dL 0.6-1.3 Glom Filtration Rate, Estimate 52 mL/min >60 If >60 mL/min >60 63 BUN/Creat 28.1 ratio Sodium 141 mmol/L 136-145 Potassium 4.1 mmol/L 3.5-5.1 Chloride 111 mmol/L High 98-107 Carbon Dioxide 22 mmol/L 21-32 Anion Gap 8 mEq/L 8-16 Calcium 9.1 mg/dL 8.5-10.1 Laboratory test 08/13/2015 [facility] Magnesium 1.8 mg/dL 1.8-2.4 finding [address] [place] [address] [phone] Basic (BMP) 06/19/2015 N2N/CCD Import Yue 44 Low >60 Egfr Anion Gap 16 mmol/L High 6-14 BUN 55 mg/dL High 6-26 Calcium 9.6 mg/dL 8.5-10.2 Carbon Dioxide 23 mmol/L Low 24-34 Chloride 102 mmol/L 97-109 Creatinine 1.4 mg/dL 0.5-1.4 Glucose 222 mg/dL High 70-105 Non Yue Egfr 36 Low >60 Potassium 4.5 mmol/L 3.5-5.2 64 Sodium 136 mmol/L 134-142 65 Basic (BMP) 06/17/2015 N2N/CCD Import Yue Egfr 22 Low >60 66 Anion Gap 14 mmol/L 6-14 BUN 67 Results verif <See Note> mg/dL High 6-26 Calcium 9.3 mg/dL 8.5-10.2 Carbon Dioxide 28 mmol/L 24-34 Chloride 98 mmol/L 97-109 Creatinine 2.6 mg/dL High 0.5-1.4 67 Glucose 86 mg/dL 70-105 Non Yue Egfr 18 Low >60 Potassium 4.2 mmol/L 3.5-5.2 Sodium 136 mmol/L 134-142 Laboratory test finding 06/15/2015 N2N/CCD Import Bedside Glucose 273 High 70-110 Laboratory test finding 06/14/2015 N2N/CCD Import Anion Gap 11 8-16 BUN/Creatinine Ratio 13.5 Blood Urea Nitrogen 19 High 7-18 Calcium Level 9.5 8.5-10.1 Carbon Dioxide Level 28 21-32 Chloride Level 98 98-107 Creatinine 1.4 High 0.6-1.3 Estimated GFR () 48 >60 Estimated GFR (Non- 39 >60 Glucose Screen 226 High 74-106 Hematocrit 39.3 # 36.0-46.1 Hemoglobin 12.9 11.6-15.8 Mean Corpuscular Hemoglobin 30.4 25.9-32.7 Mean Corpuscular Hemoglobin Concent 32.8 30.8-34.3 Mean Corpuscular Volume 92.7 80.9-99.0 Mean Platelet Volume 9.6 8.9-12.4 Platelet Count 191 155-360 Potassium Level 3.2 Low 3.5-5.1 RDW Coefficient of Variation 14.8 High 11.7-14.4 Red Blood Count 4.24 3.90-5.40 Sodium Level 137 136-145 White Blood Count 4.9 3.1-10.7 Laboratory test 06/13/2015 N2N/CCD Import Alanine Aminotransferase 24 12 -78 finding (Alt/SGPT) Albumin 3.3 Low 3.4-5.0 Albumin/Globulin Ratio 0.9 Alkaline Phosphatase 144 High 45-117 Aspartate Amino Transf (Ast/Sgot) 17 15-37 Globulin 3.5 1.9-4.3 Total Bilirubin 0.5 0.2-1.0 Total Protein 6.8 6.4-8.2 Laboratory test 06/13/2015 N2N/CCD Import Basophils # (Auto) 0.03 0.0- 0.1 finding Basophils (%) (Auto) 0.7 0.0-1.1 Eosinophils # (Auto) 0.07 0.0-0.5 Eosinophils (%) (Auto) 1.7 0.0-6.6 Estimated Average Glucose (eAG) 209 Hemoglobin A1c 8.9 High 4.2-6.3 Lymphocytes # (Auto) 0.90 Low 1.8-7.0 Lymphocytes (%) (Auto) 21.3 17.0-46.1 Monocytes # (Auto) 0.39 0.3-0.9 Monocytes (%) (Auto) 9.2 4.3-13.2 Neutrophils # (Auto) 2.84 1.0-7.0 Neutrophils (%) (Auto) 67.1 40.4-72.8 Red Cell Distribution Width 50.4 High 3-47 Laboratory test 06/12/2015 N2N/CCD Import Pro-B-Type 191.0 High <125 finding Natriuretic Peptide Total Creatine Kinase 61 26-192 Laboratory test 04/24/2015 N2N/CCD Import Bedside Glucose 203 High 70- 110 finding Laboratory test 04/24/2015 N2N/CCD Import Cholesterol Level 226 < 200 finding Estimated Average Glucose (eAG) 223 HDL Cholesterol 33 > 40 Hemoglobin A1c 9.4 High 4.2-6.3 Triglycerides Level 488 < 150 Laboratory test 04/23/2015 N2N/CCD Import Alanine Aminotransferase 36 12 -78 finding (Alt/SGPT) Albumin 3.2 Low 3.4-5.0 Albumin/Globulin Ratio 0.9 Alkaline Phosphatase 204 High 45-117 Anion Gap 5 Low 8-16 Aspartate Amino Transf (Ast/Sgot) 22 15-37 BUN/Creatinine Ratio 20.8 Basophils # (Auto) 0.03 0.0-0.1 Basophils (%) (Auto) 0.6 0.0-1.1 Blood Urea Nitrogen 25 High 7-18 Calcium Level 8.9 8.5-10.1 Carbon Dioxide Level 30 21-32 Chloride Level 103 98-107 Creatinine 1.2 0.6-1.3 D-Dimer, Quantitative 2.07 *H Eosinophils # (Auto) 0.05 0.0-0.5 Eosinophils (%) (Auto) 0.9 0.0-6.6 Estimated GFR () 57 >60 Estimated GFR (Non- 47 >60 Globulin 3.6 1.9-4.3 Glucose Screen 243 High 74-106 Hematocrit 38.9 36.0-46.1 Hemoglobin 12.6 11.6-15.8 Lymphocytes # (Auto) 0.78 Low 1.8-7.0 Lymphocytes (%) (Auto) 14.7 Low 17.0-46.1 Mean Corpuscular Hemoglobin 30.6 25.9-32.7 Mean Corpuscular Hemoglobin Concent 32.4 30.8-34.3 Mean Corpuscular Volume 94.4 80.9-99.0 Mean Platelet Volume 9.5 8.9-12.4 Monocytes # (Auto) 0.39 0.3-0.9 Monocytes (%) (Auto) 7.3 4.3-13.2 Neutrophils # (Auto) 4.06 1.0-7.0 Neutrophils (%) (Auto) 76.5 High 40.4-72.8 Platelet Count 179 155-360 Potassium Level 4.6 3.5-5.1 RDW Coefficient of Variation 14.3 11.7-14.4 Red Blood Count 4.12 3.90-5.40 Red Cell Distribution Width 48.1 High 3-47 Sodium Level 138 136-145 Total Bilirubin 0.3 0.2-1.0 Total Creatine Kinase 93 26-192 Total Protein 6.8 6.4-8.2 White Blood Count 5.3 3.1-10.7 Laboratory test 04/23/2015 N2N/CCD Import Urine Amorphous Small Negative finding Sediment Urine Bacteria Many High None Seen Urine Bilirubin Negative Negative Urine Blood Negative Negative Urine Clarity Clear Clear Urine Color Yellow Yellow Urine Culture Organism: Klebsiella Pneumoniae Urine Culture Reflexed Culture To Follow Urine Epithelial Cells Very Few None Seen Urine Glucose (Ua) Negative Negative Urine Ketones Negative Negative Urine Leukocyte Esterase Small High Negative Urine Nitrite Positive High Negative Urine Protein Negative Negative Urine Specific [place] 1.010 1.010-1.030 Urine Urobilinogen 0.2 0.2-1.0 Urine pH 5.0 Low 6.5-7.5 Basic Metabolic Panel 03/14/2015 [facility] Glucose 118 mg/dL High 74-106 [address] [place] [address] [phone] BUN 22 mg/dL High 7-18 Creatinine 1.2 mg/dL 0.6-1.3 Glom Filtration Rate, Estimate 47 mL/min >60 If 57 mL/min >60 68 BUN/Creat 18.3 ratio Sodium 140 mmol/L 136-145 Potassium 4.4 mmol/L 3.5-5.1 Chloride 108 mmol/L High 98-107 Carbon Dioxide 26 mmol/L 21-32 Anion Gap 6 mEq/L Low 8-16 Calcium 9.3 mg/dL 8.5-10.1 Laboratory test 03/14/2015 [facility] Magnesium 1.7 mg/dL Low 1.8-2.4 finding [address] [place] [address] [phone] Laboratory test 03/14/2015 N2N/CCD Import Estimated GFR 57 >60 finding () Estimated GFR (Non- 47 >60 Sodium Level 140 136-145 Basic Metabolic Panel 02/21/2015 [facility] Glucose 119 mg/dL High 74-106 [address] [place] [address] [phone] BUN 23 mg/dL High 7-18 Creatinine 1.2 mg/dL 0.6-1.3 Glom Filtration Rate, Estimate 47 mL/min >60 If 57 mL/min >60 69 BUN/Creat 19.1 ratio Sodium 139 mmol/L 136-145 Potassium 3.9 mmol/L 3.5-5.1 Chloride 105 mmol/L 98-107 Carbon Dioxide 28 mmol/L 21-32 Anion Gap 6 mEq/L Low 8-16 Calcium 9.1 mg/dL 8.5-10.1 Laboratory test 02/21/2015 [facility] Magnesium 1.8 mg/dL 1.8-2.4 finding [address] [place] [address] [phone] Laboratory test 02/21/2015 N2N/CCD Import Estimated GFR 57 >60 finding () Estimated GFR (Non- 47 >60 Sodium Level 139 136-145 CBS W/Automated Diff 12/17/2014 [facility] White Blood 4.9 K/uL 3.1-10.[address] [place] [address] [phone] Red Blood Count 4.03 M/uL 3.90-5.40 Hemoglobin 12.7 gm/dL 11.6-15.8 Hematocrit 37.8 % 36.0-46.1 Mean Cell Volume 93.8 fl 80.9-99.0 Mean Corpuscular HGB 31.5 pg 25.9-32.7 Mean Corpuscular HGB Conc 33.6 g/dL 30.8-34.3 Platelet Count 190 K/uL 155-360 Red Cell Distri Width SD 47.5 fl High 3-47 Red Cell Distri Width %CV 14.5 % High 11.7-14.4 Mean Platelet Volume 10.2 fL 8.9-12.4 Neut% 69.0 % 40.4-72.8 Lymph % 19.0 % 17.0-46.1 [place] % 10.2 % 4.3-13.2 Eo% 1.2 % 0.0-6.6 Bas% 0.6 % 0.0-1.1 Neut# 3.38 K/uL 1.0-7.0 Lymph # 0.93 K/uL Low 1.8-7.0 [place] # 0.50 K/uL 0.3-0.9 Eos # 0.06 K/uL 0.0-0.5 Baso # 0.03 K/uL 0.0-0.1 LDL Cholesterol 12/17/2014 [facility] Cholesterol 200 mg/dL < 200 70 Profile [address] [place] [address] [phone] Triglycerides 434 mg/dL < 150 71 HDL Cholesterol 32 mg/dL > 40 72 LDL-Cholesterol See Note mg/dL < 100 73 Laboratory test 12/17/2014 [facility] Magnesium 1.7 mg/dL Low 1.8-2.4 finding [address] [place] [address] [phone] TSH Reflex FT4 and/or FT3 1.28 uIU/mL 0.36-3.74 74 Comprehensive Metabolic 12/17/2014 [facility] Glucose 344 mg/dL High 74-106 Panel [address] [place], [place] [id number] [phone] BUN 25 mg/dL High 7-18 Creatinine 1.4 mg/dL High 0.6-1.3 Glom Filtration Rate, Estimate 39 mL/min >60 If 48 mL/min >60 75 BUN/Creat 17.8 ratio Sodium 135 mmol/L Low 136-145 Potassium 4.1 mmol/L 3.5-5.1 Chloride 98 mmol/L 98-107 Carbon Dioxide 25 mmol/L 21-32 Anion Gap 12 mEq/L 8-16 Calcium 8.6 mg/dL 8.5-10.1 Total Protein 7.0 g/dL 6.4-8.2 Albumin 3.6 g/dL 3.4-5.0 Globulin 3.4 g/dL 1.9-4.3 Alb/Glob 1.1 ratio Bilirubin,Total 0.4 mg/dL 0.2-1.0 Sgot/Ast 18 U/L 15-37 SGPT/Alt 28 U/L 12-78 Alkaline Phosphatase 184 U/L High 45-117 Urinalysis With 12/17/2014 [facility] Urine Color YELLOW Yellow Microscopic [address] [place] [address] [phone] Urine Clarity SL CLOUDY Clear Urine Glucose - Dipstick 500 mg/dL High Negative Urine Bilirubin - Dipstick NEGATIVE Negative Urine Ketone NEGATIVE mg/dL Negative Urine Specific [place] 1.010 1.010-1.030 Urine Blood NEGATIVE Negative Urine PH 6.0 Low 6.5-7.5 Urine Protein - Dipstick NEGATIVE mg/dL Negative Urine Urobilinogen - Dipstick 0.2 E.U./dL 0.2-1.0 Urine Nitrite - Dipstick POSITIVE High Negative Urine Leuk Esterase NEGATIVE Negative Urine RBC NONE SEEN rbc/hpf 0-2 Urine WBC 2-5 wbc/hpf 0-7 Urine Epithelial Cells FEW NONESEEN/lpf Urine Bacteria MODERATE NONESEEN High Laboratory test 05/08/2014 [facility] Aot Request Test(s) added 76 finding [address] [place] [address] [phone] Basic Metabolic 10/20/2012 [facility] Glucose 201 mg/dL High 76-115 Panel 134 [facility] [place] [address] [phone] BUN 12 mg/dL 5-23 Creatinine 1.0 mg/dL 0.5-1.4 Glom Filtration Rate, Estimate 59 mL/min >60 If >60 mL/min >60 77 BUN/Creat 12.0 ratio Sodium 139 mmol/L 136-145 Potassium 4.5 mmol/L 3.5-5.1 Chloride 105 mmol/L 98-107 Carbon Dioxide 26 mEq/L 18-29 Anion Gap 13 mEq/L 8-16 Calcium 9.7 mg/dL 8.5-10.1 Laboratory test finding 10/20/2012 [facility] NT-proBNP 62.0 pg/mL <325.0 [address] [place], [place] [id number] [phone] 1 11/18 preOV 2 Updated reference range on new analyzer 3 Updated reference range on new analyzer 4 Concerning GFR Guidelines: Normal function or mild renal disease, if clinically at risk: >/=60 mL/min Moderately decreased: 30-59 Severely decreased: 15-29 Renal failure: <15 There is reduced accuracy above 60ml/min/1.73 m squared, but the numeric value may be clinically useful in the near 60 range Glomerular Filtration Rate (GFR) is estimated based on the MDRD equation, which assumes a steady state for creatinine as recommended by the National Kidney Disease Education Program in conjunction with the National Institutes of Health and the National Kidney Foundation. Clinical conditions in which it may be necessary to measure GFR by using clearance methods include extremes of age and body size, severe malnutrition or obesity, diseases of skeletal muscle, paraplegia or quadriplegia, vegetarian diet, rapidly changing kidney function, and calculation of the dose of potentially toxic drugs that are excreted by the kidneys. 5 Concerning GFR Guidelines for Americans: Normal function or mild renal disease, if clinically at risk: >/=60 mL/min Moderately decreased: 30-59 Severely decreased: 15-29 Renal failure: <15 There is reduced accuracy above 60ml/min/1.73 m squared, but the numeric value may be clinically useful in the near 60 range 6 Updated Reference Range 7 Updated reference range on new analyzer 8 Per NCEP ATP III Guidelines: Normal Population <130 Patients with medical conditions: CHD/DM Optimal: <100 Borderline high: 130-159 High: 160-189 Very high: >189 9 CC: [facility]: FAX [phone] (FAXED 05/22) 05/19 preOV 10 Per NCEP ATP III Guidelines: Results lower than 40 mg/dL are suggestive of increased risk for coronary artery disease. Results > or=to 60 mg/dL are considered a negative risk factor. 11 Per NCEP ATP III Guidelines: Normal Population <130 Patients with medical conditions: CHD/DM Optimal: <100 Borderline high: 130-159 High: 160-189 Very high: >189 12 Concerning GFR Guidelines for Americans: Normal function or mild renal disease, if clinically at risk: >/=60 mL/min Moderately decreased: 30-59 Severely decreased: 15-29 Renal failure: <15 13 Updated Reference Range 14 Updated reference range on new analyzer 15 Concerning GFR Guidelines: Normal function or mild renal disease, if clinically at risk: >/=60 mL/min Moderately decreased: 30-59 Severely decreased: 15-29 Renal failure: <15 Glomerular Filtration Rate (GFR) is estimated based on the MDRD equation, which assumes a steady state for creatinine as recommended by the National Kidney Disease Education Program in conjunction with the National Institutes of Health and the National Kidney Foundation. Clinical conditions in which it may be necessary to measure GFR by using clearance methods include extremes of age and body size, severe malnutrition or obesity, diseases of skeletal muscle, paraplegia or quadriplegia, vegetarian diet, rapidly changing kidney function, and calculation of the dose of potentially toxic drugs that are excreted by the kidneys. 16 Updated reference range on new analyzer 17 06/18 preOV 18 Per NCEP ATP III Guidelines: Normal Population <130 Patients with medical conditions: CHD/DM Optimal: <100 Borderline high: 130-159 High: 160-189 Very high: >189 19 Per NCEP ATP III Guidelines: Results lower than 40 mg/dL are suggestive of increased risk for coronary artery disease. Results > or=to 60 mg/dL are considered a negative risk factor. 20 Concerning GFR Guidelines: Normal function or mild renal disease, if clinically at risk: >/=60 mL/min Moderately decreased: 30-59 Severely decreased: 15-29 Renal failure: <15 Glomerular Filtration Rate (GFR) is estimated based on the MDRD equation, which assumes a steady state for creatinine as recommended by the National Kidney Disease Education Program in conjunction with the National Institutes of Health and the National Kidney Foundation. Clinical conditions in which it may be necessary to measure GFR by using clearance methods include extremes of age and body size, severe malnutrition or obesity, diseases of skeletal muscle, paraplegia or quadriplegia, vegetarian diet, rapidly changing kidney function, and calculation of the dose of potentially toxic drugs that are excreted by the kidneys. 21 Updated reference range on new analyzer 22 Updated reference range on new analyzer 23 02/15 preOV 24 Per NCEP ATP III Guidelines: Normal Population <130 Patients with medical conditions: CHD/DM Optimal: <100 Borderline high: 130-159 High: 160-189 Very high: >189 25 Per NCEP ATP III Guidelines: Results lower than 40 mg/dL are suggestive of increased risk for coronary artery disease. Results > or=to 60 mg/dL are considered a negative risk factor. 26 Updated reference range on new analyzer 27 Updated reference range on new analyzer 28 CHF 29 Note: Persistent reduction for 3 months or more in an eGFR <60 mL/min/1.73 m2 defines CKD. Patients with eGFR values >/=60 mL/min/1.73 m2 may also have CKD if evidence of persistent proteinuria is present. The original MDRD equation for estimated GFR is not valid for patients less than 18 years of age. Additional information may be found at [email or web address]. 30 Note: Persistent reduction for 3 months or more in an eGFR <60 mL/min/1.73 m2 defines CKD. Patients with eGFR values >/=60 mL/min/1.73 m2 may also have CKD if evidence of persistent proteinuria is present. The original MDRD equation for estimated GFR is not valid for patients less than 18 years of age. Additional information may be found at [email or web address]. 31 Note: Persistent reduction for 3 months or more in an eGFR <60 mL/min/1.73 m2 defines CKD. Patients with eGFR values >/=60 mL/min/1.73 m2 may also have CKD if evidence of persistent proteinuria is present. The original MDRD equation for estimated GFR is not valid for patients less than 18 years of age. Additional information may be found at [email or web address]. 32 Elevated levels of HbA1c suggest the need for more aggressive treatment of glycemia. The [place] [employer] recommends that a primary goal of therapy should be a HbA1c of <7% and that physicians should re-evaluate the treatment regimen in patients with HbA1c values consistently >8%. 33 CALLED GLU TO MAXIMO Rose AT 212611/17/16 by [email or web address] 34 CALLED GLU TO SANJANA Mistry AT 1736 11/17/16 by [email or web address] 35 URINE, CLEAN CATCH 36 CULTURE TO FOLLOW 37 URINE, CLEAN CATCH 38 KLEBSIELLA PNEUMONIAE 39 > 100,000 CFU/mL 40 MIXED URETHRAL RUPAL 41 50,000 - 100,000 CFU/mL 42 NO GROWTH: FINAL REPORT 43 NO GROWTH: FINAL REPORT 44 NO GROWTH: FINAL REPORT 45 NO GROWTH: FINAL REPORT 46 I10 47 Note: Persistent reduction for 3 months or more in an eGFR <60 mL/min/1.73 m2 defines CKD. Patients with eGFR values >/=60 mL/min/1.73 m2 may also have CKD if evidence of persistent proteinuria is present. The original MDRD equation for estimated GFR is not valid for patients less than 18 years of age. Additional information may be found at [email or web address]. 48 I48.1 49 Reference Guidelines*: Desirable: ........... < 200 mg/dL Borderline High: ..... 200-239 mg/dL High: ................ >=240 mg/dL * The National Cholesterol Education Program (NCEP) 50 Reference Guidelines*: Normal: ............. < 150 mg/dL Borderline High: .... 150-199 mg/dL High: ............... 200-499 mg/dL Very High: .......... > 500 mg/dL * Source: National Cholesterol Education Program (NCEP) 51 Reference Guidelines*: Low HDL: ..... < 40 mg/dL Normal: ..... 40-60 mg/dL Desirable: ... > 60 mg/dL *The National Cholesterol Education Program(NCEP) 52 Reference Guidelines*: Optimal:........... <100 mg/dL Near Optimal....... 100-129 mg/dL Borderline High.... 130-159 mg/dL High............... 160-189 mg/dL Very High.......... >=190 mg/dL * Source: National Cholesterol Education Program (NCEP) 53 Note: Persistent reduction for 3 months or more in an eGFR <60 mL/min/1.73 m2 defines CKD. Patients with eGFR values >/=60 mL/min/1.73 m2 may also have CKD if evidence of persistent proteinuria is present. The original MDRD equation for estimated GFR is not valid for patients less than 18 years of age. Additional information may be found at [email or web address]. 54 Values below the stated reference ranges of AST and ALT can be seen in normal populations. Clinical correlation is suggested. 55 Note: Persistent reduction for 3 months or more in an eGFR <60 mL/min/1.73 m2 defines CKD. Patients with eGFR values >/=60 mL/min/1.73 m2 may also have CKD if evidence of persistent proteinuria is present. The original MDRD equation for estimated GFR is not valid for patients less than 18 years of age. Additional information may be found at [email or web address]. 56 Note: Persistent reduction for 3 months or more in an eGFR <60 mL/min/1.73 m2 defines CKD. Patients with eGFR values >/=60 mL/min/1.73 m2 may also have CKD if evidence of persistent proteinuria is present. The original MDRD equation for estimated GFR is not valid for patients less than 18 years of age. Additional information may be found at [email or web address]. 57 Performed at: RN - [facility] [address] [id number] [employer]: Мария Fernandes MD, Phone: [phone] cc: Dr Buddy Roa 10/15 preOV 59 Concerning GFR Guidelines: Normal function or mild renal disease, if clinically at risk: >/=60 mL/min Moderately decreased: 30-59 Severely decreased: 15-29 Renal failure: <15 Glomerular Filtration Rate (GFR) is estimated based on the MDRD equation, which assumes a steady state for creatinine as recommended by the National Kidney Disease Education Program in conjunction with the National Institutes of Health and the National Kidney Foundation. Clinical conditions in which it may be necessary to measure GFR by using clearance methods include extremes of age and body size, severe malnutrition or obesity, diseases of skeletal muscle, paraplegia or quadriplegia, vegetarian diet, rapidly changing kidney function, and calculation of the dose of potentially toxic drugs that are excreted by the kidneys. 60 Per NCEP ATP III Guidelines: Normal Population <130 Patients with medical conditions: CHD/DM Optimal: <100 Borderline high: 130-159 High: 160-189 Very high: >189 61 Per NCEP ATP III Guidelines: Results lower than 40 mg/dL are suggestive of increased risk for coronary artery disease. Results > or=to 60 mg/dL are considered a negative risk factor. 62 Note: Persistent reduction for 3 months or more in an eGFR <60 mL/min/1.73 m2 defines CKD. Patients with eGFR values >/=60 mL/min/1.73 m2 may also have CKD if evidence of persistent proteinuria is present. The original MDRD equation for estimated GFR is not valid for patients less than 18 years of age. Additional information may be found at [email or web address]. 63 Note: Persistent reduction for 3 months or more in an eGFR <60 mL/min/1.73 m2 defines CKD. Patients with eGFR values >/=60 mL/min/1.73 m2 may also have CKD if evidence of persistent proteinuria is present. The original MDRD equation for estimated GFR is not valid for patients less than 18 years of age. Additional information may be found at [email or web address]. 64 Concerning GFR Guidelines for Americans: Normal function or mild renal disease, if clinically at risk: >/=60 mL/min Moderately decreased: 30-59 Severely decreased: 15-29 Renal failure: <15 65 Concerning GFR Guidelines: Normal function or mild renal disease, if clinically at risk: >/=60 mL/min Moderately decreased: 30-59 Severely decreased: 15-29 Renal failure: <15 Glomerular Filtration Rate (GFR) is estimated based on the MDRD equation, which assumes a steady state for creatinine as recommended by the National Kidney Disease Education Program in conjunction with the National Institutes of Health and the National Kidney Foundation. Clinical conditions in which it may be necessary to measure GFR by using clearance methods include extremes of age and body size, severe malnutrition or obesity, diseases of skeletal muscle, paraplegia or quadriplegia, vegetarian diet, rapidly changing kidney function, and calculation of the dose of potentially toxic drugs that are excreted by the kidneys. 66 Tito Copeland MD SEE 06/17 TRIAGE 67 67 Results verified by repeat analysis 68 Note: Persistent reduction for 3 months or more in an eGFR <60 mL/min/1.73 m2 defines CKD. Patients with eGFR values >/=60 mL/min/1.73 m2 may also have CKD if evidence of persistent proteinuria is present. The original MDRD equation for estimated GFR is not valid for patients less than 18 years of age. Additional information may be found at [email or web address]. 69 Note: Persistent reduction for 3 months or more in an eGFR <60 mL/min/1.73 m2 defines CKD. Patients with eGFR values >/=60 mL/min/1.73 m2 may also have CKD if evidence of persistent proteinuria is present. The original MDRD equation for estimated GFR is not valid for patients less than 18 years of age. Additional information may be found at [email or web address]. 70 Reference Guidelines*: Desirable: ........... < 200 mg/dL Borderline High: ..... 200-239 mg/dL High: ................ >=240 mg/dL * The National Cholesterol Education Program (NCEP) 71 Reference Guidelines*: Normal: ............. < 150 mg/dL Borderline High: .... 150-199 mg/dL High: ............... 200-499 mg/dL Very High: .......... > 500 mg/dL * Source: National Cholesterol Education Program (NCEP) 72 Reference Guidelines*: Low HDL: ..... < 40 mg/dL Normal: ..... 40-60 mg/dL Desirable: ... > 60 mg/dL *The National Cholesterol Education Program(NCEP) 73 Test not performed (LDL CANNOT BE CALCULATED FOR TRIGS >400 mg/dL) 74 QUERY: Reflex add FT3? QUERY: Reflex add FT4? 75 Note: Persistent reduction for 3 months or more in an eGFR <60 mL/min/1.73 m2 defines CKD. Patients with eGFR values >/=60 mL/min/1.73 m2 may also have CKD if evidence of persistent proteinuria is present. The original MDRD equation for estimated GFR is not valid for patients less than 18 years of age. Additional information may be found at [email or web address]. 76 Tests: troponin Instructions: 77 Note: Persistent reduction for 3 months or more in an eGFR <60 mL/min/1.73 m2 defines CKD. Patients with eGFR values >/=60 mL/min/1.73 m2 may also have CKD if evidence of persistent proteinuria is present. The original MDRD equation for estimated GFR is not valid for patients less than 18 years of age. Additional information may be found at [email or web address]. Procedures Date Code Description Status 07/08/2018 62375 Stress Test Interpre And Report Only Completed 07/08/2018 73838 Stress Test Physician Super Only Completed 07/08/2018 91383 Myocardial Imaging Tomographic Multiple Study AT Rest Or Completed Stress 07/04/2018 80705 EKG-Tracing And Report Completed 05/16/2018 76335 Doppler ECHO Color Flow Mapping Completed 05/16/2018 87516 Doppler Echocardiogram Complete Completed 05/16/2018 40162 Transesophageal Echocardiogram Completed 01/12/2018 13539 IV Push Single Or Initial Substance/Drug Completed 06/04/2017 09939 Doppler ECHO Color Flow Mapping Completed 06/04/2017 62198 Doppler ECHO Color Flow Mapping Completed 06/04/2017 97464 Doppler Echocardiogram Complete Completed 06/04/2017 34622 Doppler Echocardiogram Complete Completed 06/04/2017 13391 Transesophageal Echocardiogram Completed 06/04/2017 94393 Transesophageal Echocardiogram Completed 05/03/2017 08618 EKG-Tracing And Report Completed 03/19/2017 75360 Transesophageal Echocardiogram Completed 03/19/2017 44636 Doppler Echocardiogram Complete Completed 03/19/2017 23693 Doppler ECHO Color Flow Mapping Completed 03/03/2017 61801 EKG-Tracing And Report Completed 11/11/2016 94905 EKG-Tracing And Report Completed 09/25/2016 29647 EKG Interpretation And Report Only Completed 09/25/2016 86622 Cardioversion External Completed 09/22/2016 62427 EKG-Tracing And Report Completed 07/15/2016 26857 EKG Interpretation And Report Only Completed 07/13/2016 10021 Cardioversion External Completed 07/13/2016 57857 EKG-Tracing And Report Completed 07/13/2016 19092 EKG Interpretation And Report Only Completed 07/13/2016 74858 Transesophageal Echocardiogram Completed 07/13/2016 87530 Doppler Echocardiogram Complete Completed 07/13/2016 32717 Doppler ECHO Color Flow Mapping Completed 06/30/2016 06633 EKG-Tracing And Report Completed 06/13/2015 25263 Echocardiogram Complete Completed 03/15/2015 19169 EKG-Tracing And Report Completed 02/19/2015 32381 EKG-Tracing And Report Completed 12/17/2014 97804 EKG-Tracing And Report Completed 12/17/2014 52022 Event Monitor Inter/Review Only Completed 09/27/2014 46239 Holter Monitor 24HR Inter/Report Completed 09/21/2014 42642 EKG-Tracing And Report Completed 04/25/2014 65537 Echocardiogram Complete Completed 04/24/2014 82158 Holter Monitor 24HR Inter/Report Completed 04/12/2014 79838 EKG-Tracing And Report Completed 02/15/2014 60182 Ultrasound Guide For Needle Biopsy Completed 02/15/2014 84819 Injection For Nerve Block, Brachial Plexus Single Completed 02/15/2014 99351 Arthroscopy with rotator cuff repair Completed 02/15/2014 59362 Decompression subacromial space w/partial acromioplasty Completed w/wo corc 02/15/2014 92153 Tenodesis Biceps Long Tendon Completed 02/15/2014 98125 Anesthesia, Shoulder Surgery Open/Surg Arthroscopic Completed Procedures 02/13/2014 28187 EKG-Tracing And Report Completed 12/13/2013 80115 Asp./Injection major joint Completed 10/25/2013 33336 Removal Devitalization Tissue Wound Less Than Equal 20 Completed Square CM 08/24/2013 16722 Debridement:Skin, And Subcutaneous Tissue Completed 07/05/2013 30273 Removal Devitalization Tissue Wound Less Than Equal 20 Completed Square CM 06/05/2013 42032 EKG Interpretation And Report Only Completed 06/05/2013 08074 EKG-Tracing And Report Completed 05/31/2013 48232 EKG Interpretation And Report Only Completed 04/19/2013 63465 Echocardiogram Complete Completed 02/26/2013 75504 EKG Interpretation And Report Only Completed 02/23/2013 12742 Echocardiogram Complete Completed 10/17/2012 37431 Echocardiogram Complete Completed 08/18/2012 69033 EKG-Tracing And Report Completed 07/12/2012 64429 Stress Test Interpre And Report Only Completed 07/12/2012 51060 Stress Test Physician Super Only Completed 07/12/2012 51672 Stress Test Physician Super Only Completed 07/12/2012 20851 Myocardial Imaging Tomographic Multiple Study AT Rest Or Completed Stress 12/11/2011 65858 Echocardiogram Complete Completed 12/10/2011 80896 EKG Interpretation And Report Only Completed 12/09/2011 90319 Anesthesia Head Neck Posterior Trunk Integumentary Unspec Completed 12/07/2011 29275 EKG Interpretation And Report Only Completed Encounters Type Date Location Provider Dx Diagnosis Office Visit 11/28/2018 Cardiology Office Pipo Blount Z01.810 Encounter for 3:30p B., PA preprocedural cardiovascular examination I48.1 Persistent atrial fibrillation I50.32 Chronic diastolic (congestive) heart failure I10 Essential (primary) hypertension I34.0 Nonrheumatic mitral (valve) insufficiency 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, unsp Office Visit 07/21/2018 1:00p Cardiology Office Mine, R07.9 Chest pain, Marlyss B., PA unspecified I50.32 Chronic diastolic (congestive) heart failure I48.1 Persistent atrial fibrillation I10 Essential (primary) hypertension I34.0 Nonrheumatic mitral (valve) insufficiency Office Visit 07/04/2018 10:30a Cardiology Office Mine, R07.9 Chest pain, Marlyss B., PA unspecified I50.32 Chronic diastolic (congestive) heart failure I48.1 Persistent atrial fibrillation I10 Essential (primary) hypertension I34.0 Nonrheumatic mitral (valve) insufficiency Office Visit 03/16/2018 11:45a Cardiology Office Buddy Roa, I50.33 Acute on chronic MD diastolic (congestive) heart failure I48.1 Persistent atrial fibrillation 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, unsp Office Visit 01/12/2018 1:15p Cardiology Office Buddy Roa I50.33 Acute on chronic MD diastolic (congestive) heart failure I48.1 Persistent atrial fibrillation 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, unsp R60.0 Localized edema Office Visit 06/18/2017 2:20p Cardiology Office Buddy Roa I48.1 Persistent atrial MD fibrillation 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, unsp I50.32 Chronic diastolic (congestive) heart failure E66.01 Morbid (severe) obesity due to excess calories Office Visit 05/03/2017 11:30a Cardiology Office Buddy Roa, I48.1 Persistent atrial MD fibrillation 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 I50.32 Chronic diastolic (congestive) heart failure I10 Essential (primary) hypertension Office Visit 03/03/2017 3:10p Cardiology Office Buddy Roa I48.1 Persistent atrial MD fibrillation I50.32 Chronic diastolic (congestive) heart failure I10 Essential (primary) hypertension R60.0 Localized edema R06.02 Shortness of breath E66.01 Morbid (severe) obesity due to excess calories Office Visit 11/30/2016 Cardiology Angie Garcia 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, (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 Office Visit 11/11/2016 Cardiology Buddy Roa MD I48.1 Persistent atrial 2:10p Office fibrillation Z79.01 jail (current) use of anticoagulants I10 Essential (primary) hypertension I50.32 Chronic diastolic (congestive) heart failure R60.0 Localized edema Office Visit 09/22/2016 1:50p Cardiology Office Buddy Roa I48.1 Persistent atrial MD fibrillation Z79.01 jail (current) use of anticoagulants I50.32 Chronic diastolic (congestive) heart failure R06.02 Shortness of breath I10 Essential (primary) hypertension Office Visit 06/30/2016 2:00p Cardiology Office Malka Lea I48.91 Unspecified atrial A., ANP fibrillation I50.32 Chronic diastolic (congestive) heart failure R60.0 Localized edema I10 Essential (primary) hypertension I25.10 Athscl heart disease of [place] coronary artery w/o ang pctrs E78.2 Mixed hyperlipidemia Office Visit 12/25/2015 2:30p Cardiology Office Buddy Roa I50.32 Chronic diastolic MD (congestive) heart failure R60.0 Localized edema I10 Essential (primary) hypertension I25.10 Athscl heart disease of [place] coronary artery w/o ang pctrs Office Visit 12/05/2015 1:00p Cardiology Office Buddy Roa I50.32 Chronic diastolic MD (congestive) heart failure R60.0 Localized edema I10 Essential (primary) hypertension I25.10 Athscl heart disease of [place] coronary artery w/o ang pctrs Office Visit 11/07/2015 10:00a Oncology Office Boufal, 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 bursitis, left hip Office Visit 08/30/2015 9:40a Orthopaedic Office Katheryn M70.62 Keshawn Bazan M.D. bursitis, left hip M25.552 Pain in left hip Office Visit 08/28/2015 10:47a [place] Jalen Mckeon5.552 Pain in [facility] Meg Alex hip Center Office Visit 08/13/2015 2:30p Cardiology Buddy Roa MD I50.32 Chronic Office diastolic (congestive) heart failure R60.0 Localized edema I10 Essential (primary) hypertension E78.2 Mixed hyperlipidemia I25.10 Athscl heart disease of [place] coronary artery w/o ang pctrs Office Visit 06/26/2015 2:10p Cardiology Office Malka Lea I50.9 Heart failure, A., ANP unspecified R06.02 Shortness of breath R60.0 Localized edema R07.9 Chest pain, unspecified R00.1 Bradycardia, unspecified I10 Essential (primary) hypertension E78.2 Mixed hyperlipidemia Office Visit 06/13/2015 2:18p Cardiology Office Buddy Roa MD Office Visit 06/12/2015 1:17p [facility] Min I50.31 Acute diastolic [facility] Meg Francis (congestive) heart failure Office Visit 06/12/2015 1:50p Cardiology Office Buddy Roa, R60.0 Localized edema R07.9 Chest pain, unspecified R00.1 Bradycardia, unspecified I10 Essential (primary) hypertension M25.561 Pain in right knee Office Visit 05/08/2015 2:10p Cardiology Office Buddy Roa, R60.0 Localized edema R07.9 Chest pain, unspecified R00.1 Bradycardia, unspecified I10 Essential (primary) hypertension Office Visit 04/24/2015 Cardiology Agustin Rodriguez 786.50 Pain Chest Unspec 9:37a Office Meg Hobbs, FAC Office Visit 04/23/2015 Zach Reidprasad, R07.9 Chest pain, 1:08p [facility] Meg Alex unspecified Center Office Visit 04/03/2015 Cardiology Buddy Roa MD 782.3 Edema 1:50p Office 427.89 Cardiac Dysrhythmia Other 414.01 Coronary Atherosclerosis Torres Martinez 401.1 Hypertension Benign Office Visit 03/15/2015 2:00p Cardiology Buddy Roa V72.81 Examination Office MD Preoperative Cardiovascular 414.01 Coronary Atherosclerosis Torres Martinez 782.3 Edema 401.1 Hypertension Benign 427.89 Cardiac Dysrhythmia Other Office Visit 02/28/2015 2:30p Cardiology Office Buddy Roa MD 782.3 Edema 414.01 Coronary Atherosclerosis Torres Martinez V72.81 Examination Preoperative Cardiovascular 401.1 Hypertension Benign Office Visit 02/19/2015 2:10p Cardiology Office Buddy Roa, 427.31 Atrial MD Fibrillation 427.89 Cardiac Dysrhythmia Other 414.01 Coronary Atherosclerosis Torres Martinez 401.1 Hypertension Benign 782.3 Edema Office Visit 01/19/2015 Jose Muñoz 707.15 Ulcer Of Other 10:21a [facility] Xavi, DO Part Of Foot Center Office Visit 12/17/2014 Cardiology Buddy Roa MD 427.31 Atrial 1:10p Office Fibrillation 427.89 Cardiac Dysrhythmia Other 414.01 Coronary Atherosclerosis Torres Martinez 401.1 Hypertension Benign Office Visit 10/08/2014 11:00a Cardiology Office Malka Lea 427.31 Atrial A., ANP Fibrillation 401.1 Hypertension Benign 272.2 Hyperlipidemia Mixed 786.05 Shortness Of Breath 414.01 Coronary Atherosclerosis Torres Martinez 413.9 Angina Pectoris Other Unspec 443.9 Peripheral Vascular Disease Unspec Office Visit 09/21/2014 11:20a Cardiology Office Malka Lea 401.1 Hypertension A., ANP Benign 272.2 Hyperlipidemia Mixed 786.05 Shortness Of Breath 427.31 Atrial Fibrillation 414.01 Coronary Atherosclerosis Torres Martinez 413.9 Angina Pectoris Other Unspec 443.9 Peripheral Vascular Disease Unspec Office Visit 09/10/2014 2:30p Orthopaedic Office Yazmin Lisa 727.61 Ruptured S., [facility] Rotator Cuff Complete V54.9 Orthopedic Aftercare Unspec Office Visit 07/04/2014 2:30p Orthopaedic Office Yazmin Lisa V54.9 Orthopedic S., [facility] Aftercare Unspec 727.61 Ruptured Rotator Cuff Complete Office Visit 04/25/2014 3:40p Cardiology Office Barry Walden 401.1 Hypertension Sascha Isaac MD, PhD 272.2 Hyperlipidemia Mixed 427.89 Cardiac Dysrhythmia Other 786.05 Shortness Of Breath Office Visit 04/12/2014 9:40a Cardiology Office Barry Walden 427.89 Cardiac MD Poncho, PhD Dysrhythmia Other 401.1 Hypertension Benign 272.2 Hyperlipidemia Mixed 413.9 Angina Pectoris Other Unspec 786.05 Shortness Of Breath Office Visit 02/22/2014 3:12p Abi Ceballos, [address] [place] [address] M.Samantha. Organism Unspec Center 599.0 UTI Urinary Tract Infection Site Not Spec Office Visit 02/22/2014 9:05a Orthopaedic Office Lazaro Inman 923.00 Contusion E., DO Shoulder Region Office Visit 02/13/2014 11:00a Cardiology Office Malka Lea 413.9 Angina Pectoris A., ANP Other Unspec 401.1 Hypertension Benign 272.2 Hyperlipidemia Mixed 307.49 Sleep Disorder Other V72.81 Examination Preoperative Cardiovascular Office Visit 01/24/2014 1:30p Orthopaedic Office Trev Lynn 727.61 Ruptured D., D.O. Rotator Cuff Complete 726.10 Bursae & Tendon Disorders Shoulder Region Unspec Office Visit 01/16/2014 Orthopaedic Yazmin Lisa 10:30a Office S., RPAC Office Visit 12/06/2013 Surgical Office Sudha 709.9 Skin & 1:30p Jose Alejandro Henderson Subcutaneous M.D. Tissue Disorders Unspec Office Visit 10/25/2013 Surgical Office Sudha 709.9 Skin & 1:45p Jose Alejandro Henderson Subcutaneous M.D. Tissue Disorders Unspec 719.47 Pain Joint Ankle & Foot Office Visit 09/27/2013 Surgical Office Sudha 709.9 Skin & 1:30p Christopher H., Subcutaneous M.D. Tissue Disorders Unspec Office Visit 09/01/2013 Cardiology Malka Lea, 413.9 Angina Pectoris 2:00p Office ANP Other Unspec 401.1 Hypertension Benign 272.2 Hyperlipidemia Mixed 307.49 Sleep Disorder Other Office Visit 08/24/2013 1:45p Surgical Mohlaith, 709.9 Skin & Office Christopher H., Subcutaneous M.D. Tissue Disorders Unspec 701.5 Granulation Tissue Abnormal Other Office Visit 08/10/2013 12:30p Surgical Moheimani, 709.9 Skin & Office Christopher H., Subcutaneous M.D. Tissue Disorders Unspec 701.5 Granulation Tissue Abnormal Other Office Visit 07/05/2013 11:30a Surgical Sudha, 709.9 Skin & Office Christopher H., Subcutaneous M.D. Tissue Disorders Unspec 709.9 Skin & Subcutaneous Tissue Disorders Unspec 782.0 Skin Sensation Disturbance Office Visit 06/15/2013 10:50a Cardiology Office Barry Walden 413.9 Angina Pectoris MD Poncho, PhD Other Unspec 401.1 Hypertension Benign 272.2 Hyperlipidemia Mixed 307.49 Sleep Disorder Other Office Visit 04/27/2013 2:00p Cardiology Office Malka Lea 786.05 Shortness Of A., ANP Breath 786.50 Pain Chest Unspec 401.1 Hypertension Benign 272.2 Hyperlipidemia Mixed Office Visit 04/07/2013 11:13a Sam Bernabe, 584.9 [facility] 027.0 Listeriosis Office Visit 10/20/2012 11:20a Cardiology Office Barry Walden 786.05 Thanh MD, PhD Breath 401.1 Hypertension Benign 786.50 Pain Chest Unspec Office Visit 09/23/2012 2:10p Cardiology Office Barry Walden 786.05 Tahnh MD, PhD Breath 794.30 Cardiovascular Function Study Unspec Abnormal 401.1 Hypertension Benign Office Visit 08/18/2012 Cardiology Malka Lea 794.30 Cardiovascular 9:10a Office A., ANP Function Study Unspec Abnormal 786.50 Pain Chest Unspec 401.1 Hypertension Benign 272.2 Hyperlipidemia Mixed Plan of Treatment Future Appointment(s):05/31/2019 1:00 pm - Buddy Roa MD at Cardiology [id number]/28/2018 - Pipo Blount Gera, [id number] Encounter for preprocedural cardiovascular examinationComments:She had recent normal stress test. She is compensated on exam and has no severe valvular disease. She will be at low to moderate risk for MACE for upcoming surgery. No additional testing indicated at this time. She is optimized from cardiac standpoint and shall proceed as needed / scheduled. She was instructed to hold ASA for duration needed / requested. Please resume after surgery when cleared by surgeon.I48.1 Persistent atrial fibrillationComments:Rate controlled. Off OAC due to Watchman in place. No issues. On lifelong ASA.I50.32 Chronic diastolic (congestive) heart failureComments:Fairly well controlled. She uses an extra dose of torsemide as needed. No changes made today.I10 Essential (primary) hypertensionComments:Well controlled. No oabphucP79.0 Nonrheumatic mitral (valve) insufficiencyComments: mild to moderate MR. Likely in part due to irregular R-R intervals. No symptoms or functional capacity changes related to CV bueejfQ80.9 Presence of cardiac and vascular implant and graft, unspecifComments:Watchman in place with good results. Had annual COLLIN follow up and off OACAllFollow up:6 months
[2018-12-19 17:25] VITALS: BP 153/94
--- NOTE | 2018-12-19 17:50 | UC ---
Hip/Pelvis Pain - HPI Summary HPI Summary: 73-year-old female presents with one-week history of left hip pain. Describes the pain as a constant sharp pain that worsens with movement and ambulation. Nonradiating. She has taken acetaminophen 650 mg with some relief in the pain although she states pain returns before discharge for her to take her next dose. States she had left foot surgery [address] Echeverria in [place] , is wearing a postop shoe, and notes that she is compensating for her walking because of the issue. She also reports history of some low back issues. Denies fever, chills, injury, rash, numbness, tingling, or weakness of the lower extremity, or loss of bowel or bladder control. - History Of Current Complaint Chief Complaint: UCLowerExtremity Stated Complaint: LEFT HIP PAIN Time Seen by Provider: 12/19/18 17:39 Hx Obtained From: Patient Pain Intensity: 7 - Allergies/Home Medications Allergies/Adverse Reactions: Allergies Allergy/AdvReac Type Severity Reaction Status Date / Time allopurinol Allergy Hives Verified 12/19/18 17:30 aspirin Allergy Bleeding Verified 12/19/18 17:30 doxycycline Allergy Rash Verified 12/19/18 17:30 fluticasone Allergy Rash Verified 12/19/18 17:30 nebivolol [From Bystolic] Allergy Hives Verified 12/19/18 17:30 nitrofurazone Allergy Rash Verified 12/19/18 17:30 Penicillins Allergy Hives Verified 12/19/18 17:30 sulfanilamide Allergy Hives Verified 12/19/18 17:30 Home Medications: Home Medications Albuterol HFA INHALER* [Ventolin HFA Inhaler*] 2 puff INH Q4H PRN 12/19/18 [ History Confirmed 12/19/18] Aspirin 81 mg CHEW TAB* [Aspirin Low Dose TAB*] 81 mg PO DAILY 12/19/18 [ History Confirmed 12/19/18] Digoxin 0.125 mg PO DAILY 12/19/18 [History Confirmed 12/19/18] Gabapentin CAP(*) [Neurontin 300 CAP(*)] 300 mg PO BID 12/19/18 [History Confirmed 12/19/18] Insulin Aspart [Novolog] 100 unit SQ DAILY 12/19/18 [History Confirmed 12/19/18] Insulin Detemir [Levemir Flextouch] 64 unit SUBCUT BID 12/19/18 [History Confirmed 12/19/18] Lisinopril TAB* [Prinivil TAB*] 10 mg PO DAILY 12/19/18 [History Confirmed 12/19] Melatonin 5 mg PO DAILY 12/19/18 [History Confirmed 12/19/18] Olopatadine 0.1% OPHTH (NF) [Patanol 0.1% OPHTH (NF)] 1 drop BOTH EYES DAILY [History Confirmed 12/19/18] Sherrill-3 Fatty Acids/Fish Oil [Fish Oil Concentrate Softgel] 1 each PO DAILY [History Confirmed 12/19/18] Potassium Chlor TAB* [Klor Con ER TAB*] 10 meq PO DAILY 12/19/18 [History Confirmed 12/19/18] Pravastatin Sodium 60 mg PO DAILY 12/19/18 [History Confirmed 12/19/18] Torsemide TAB* [Demadex*] 20 mg PO DAILY 12/19/18 [History Confirmed 12/19/18] Venlafaxine EXT RELEASE CAP* [Effexor Xr CAP*] 75 mg PO DAILY 12/19/18 [History Confirmed 12/19/18] Vit C/E/Zn/Coppr/Lutein/Zeaxan [Vision Formula 2] 1 tab PO BID 12/19/18 [ History Confirmed 12/19/18] diPHENhydraMINE PO* [Benadryl PO 25 MG TAB*] 25 mg PO BID 12/19/18 [History Confirmed 12/19/18] PMH/Surg Hx/FS Hx/Imm Hx Endocrine History: Diabetes, Dyslipidemia Cardiovascular History: Hypertension, Atrial Fibrillation Respiratory History: Asthma Psychological History: Depression - Surgical History Surgical History: Yes Surgery Procedure, Year, and Place: LEFT SH, APPI, GB, CATARACTS, LASER EYE - Family History Known Family History: Positive: Non-Contributory - Social History Occupation: Retired Lives: With Family Alcohol Use: None Substance Use Type: None Smoking Status (MU): Never Smoked Tobacco Review of Systems All Other Systems Reviewed And Are Negative: Yes Constitutional: Negative: Fever, Chills Skin: Negative: Rash, Bruising Respiratory: Positive: Negative Cardiovascular: Positive: Negative Gastrointestinal: Positive: Negative Genitourinary: Positive: Negative Motor: Negative: Weakness Neurovascular: Negative: Decreased Sensation Musculoskeletal: Positive: Other: - See HPI Neurological: Positive: Negative Is Patient Immunocompromised?: No Physical Exam - Summary Physical Exam Summary: GENERAL APPEARANCE: Alert and cooperative obese older adult female who appears to be in no acute distress. CARDIAC: Normal S1 and S2. No S3, S4 or murmurs. Rhythm is regular. There is no peripheral edema, cyanosis or pallor. Extremities are warm and well perfused. Capillary refill is less than 2 seconds. Peripheral pulses intact. LUNGS: Clear to auscultation without rales, rhonchi, wheezing or diminished breath sounds. ABDOMEN: Positive bowel sounds. Soft, nondistended, nontender. No guarding or rebound. No masses or hepatosplenomegally. MUSKULOSKELETAL: ROM intact to all extremities. No joint erythema or tenderness. Normal muscular development. Limping gait with walker assistance. BACK: Examination of the spine reveals normal gait and posture, no spinal deformity or tenderness, decreased range of motion or muscular spasm. EXTREMITIES: Tenderness to the left buttocks and hip along the sciatic nerve NEUROLOGICAL: Strength and sensation symmetric and intact to lower extremities. Reflexes 2+ throughout. SKIN: Skin normal color, texture and turgor with no lesions or eruptions. Triage Information Reviewed: Yes Vital Signs: Initial Vital Signs Temp 97.7 F 12/19/18 17:16 Pulse 57 12/19/18 17:16 Resp 18 12/19/18 17:16 BP 153/94 12/19/18 17:16 Pulse Ox 98 12/19/18 17:16 Vital Signs Reviewed: Yes Hip Injury Course/Dx - Course Course Of Treatment: 73-year-old female presents with one-week history of left hip pain. Describes the pain as a constant sharp pain that worsens with movement and ambulation. Nonradiating. She has taken acetaminophen 650 mg with some relief in the pain although she states pain returns before discharge for her to take her next dose. States she had left foot surgery [address] Echeverria in [place] , is wearing a postop shoe, and notes that she is compensating for her walking because of the issue. She also reports history of some low back issues. Denies fever, chills, injury, rash, numbness, tingling, or weakness of the lower extremity, or loss of bowel or bladder control. Hypertensive otherwise vital signs stable. Exam revealed tenderness to the left buttocks and hip along the sciatic nerve. Discussed with the patient that due to her multiple allergies and complex health history standard care for sciatica using anti- inflammatories or steroids controversial. I am recommending that she continue to use acetaminophen as needed for pain and try using heat or cold therapy. Due to the severity of her pain I will provide her with a short-term prescription for Tylenol 3 one tablet every 6 hours as needed for severe pain but have encouraged her to follow up with her primary care provider within 3 days to discuss appropriate pain regimen since her primary care provider is more familiar with her history. Anticipatory guidance and warning symptoms were reviewed with the patient. Verbalizes understanding and agrees with plan of care. - Differential Dx/Diagnosis Differential Diagnosis/HQI/PQRI: Arthritis, Bursitis, Tenosynovitis, Other - Sciatica, herpes zoster Provider Diagnosis: Sciatica of left side Discharge - Sign-Out/Discharge Documenting (check all that apply): Patient Departure All imaging exams completed and their final reports reviewed: No Studies - Discharge Plan Condition: Stable Disposition: HOME Prescriptions: Acetaminophen with Codeine [Acetaminophen/Codeine Raphael 300-30 mg] 1 tab PO Q6HR PRN #12 tab MDD 4 PRN Reason: Severe Pain Patient Education Materials: Sciatica (ED) Referrals: Jesus Sparks MD [Primary Care Provider] - 3 Days Additional Instructions: Your history and exam are consistent with sciatica likely from you compensating while walking due to your foot surgery. Continue to take acetaminophen according to directions as needed for pain. I will provide you with a 3 day supply of Tylenol #3 1 tab every 6 hours as needed for severe pain. Apply ice or heat to the area for 15-20 minutes at a time can sometimes help reduce the pain. Follow up with your primary care provider in 3 days to discuss other pain management solutions especially with your complicated health history. Seek immediate medical attention in the emergency room if you have worsening pain despite taking pain medication, you are unable to walk or bear weight, have weakness, numbness or tingling in the leg, or lose control of your bowel or bladder. - Billing Disposition and Condition Condition: STABLE Disposition: Home - Attestation Statements Provider Attestation: Per institutional requirements, I have reviewed the chart, however, I was not consulted specifically or made aware of this patient by the midlevel provider. I did not personally evaluate, interact with , or disposition this patient.
== END 2018-12-19 18:18 | disposition home or self-care (01) ==
LOC: UCCORT 16:22
DX: M54.32 Sciatica, left side (principal); E11.9 Type 2 diabetes mellitus without complications; I10 Essential (primary) hypertension; J45.909 Unspecified asthma, uncomplicated; F32.9 Major depressive disorder, single episode, unspecified; Z79.899 Other long term (current) drug therapy; I48.91 Unspecified atrial fibrillation; Z79.4 Long term (current) use of insulin; Z88.8 Allergy status to other drugs, medicaments and biological substances; Z88.0 Allergy status to penicillin; Z88.2 Allergy status to sulfonamides
CPT/HCPCS: 99212; G0463